=== PATIENT | male | born 1965 | race Caucasian/White ===

== ENCOUNTER 2019-07-17 06:54 | Inpatient (IN) ==
[2019-07-09 13:23] LABS: ALT/SGPT 22 U/l (0-40); AST/SGOT 20 U/l (0-37); Albumin 3.9 gm/dL (3.2-5.2); Albumin/Globulin Ratio 1.3 (1.0-2.3); Alkaline Phosphatase 58 U/L (39-117); Bilirubin,Total 0.6 mg/dL (0.0-1.0); Blood Urea Nitrogen 14 mg/dl (6-20); Calcium 9.6 mg/dl (8.6-10.4); Carbon Dioxide 28 mmol/L (22-30); Chloride 100 mmol/L (96-108); Globulin 3.1 gm/dL (2.2-3.7); Glomerular Filtration Rate 108; Glucose 118 mg/dL (70-105)
[2019-07-09 13:49] LABS: Basophils # (Auto) 0.05 K/mcL (0.00-0.30); Basophils % (Auto) 0.8 % (0.0-2.0); Eosinophils # (Auto) 0.14 K/mcL (0.00-0.70); Eosinophils % (Auto) 2.2 % (0.0-7.0); Granulocytes % (Auto) 70.6 % (38.0-78.0); Hematocrit 42.1 % (40.1-51.0); Hemoglobin 13.8 g/dL (13.7-17.5); Lymphocytes # (Auto) 1.12 K/mcL (1.50-4.80); Lymphocytes % (Auto) 17.4 % (15.5-49.0); Mean Cell Volume 93.8 fL (80.0-100.0); Mean Corpuscular HGB Conc 32.8 g/dL (31.0-36.0); Mean Platelet Volume 10.2 fL (7.4-10.4); Monocytes # (Auto) 0.58 K/mcL (0.10-0.90); Platelet Count 209 K/mcL (140-440); RBC 4.49 M/mcL (4.63-6.08); Red Cell Distribution Width 12.9 % (11.5-14.5); WBC 6.4 K/mcL (4.50-11.00)
[2019-07-09 14:06] LABS: Appearance,Urine CLEAR; Bilirubin,Urine NEG (NEG); Color,Urine YELLOW; Culture Indicated,Urine NO; Glucose,Urine (UA) NEGATIVE (NEG); Ketones,Urine NEG (NEG); Leukocyte Esterase,Urine NEG /uL (NEG); Nitrate,Urine NEG (NEG); Protein,Urine NEG (NEG); Specific Gravity,Urine 1.018 (1.000-1.035); Urine Blood NEG mg/dL (<0.03); Urobilinogen,Urine NEG (NEG)
[2019-07-09 14:38] LABS: Estimated Average Glucose(eAG) 120 mg/dL; Hemoglobin A1C 5.8 % HGB (4.0-6.0)
[~2019-07-17 06:54] MED LIST: 0.9 % SODIUM CHLORIDE 9 ML, KETOROLAC 30 MG, ROPIVACAINE HCL/PF 49.5 ML, EPINEPHrine 0.... IJ SCH; CELECOXIB 200 MG CAPSULE PO SCH; PREGABALIN 75 MG CAPSULE PO SCH; ceFAZolin 3 GM in DEXTROSE 5% IN WATER 50 ML IV SCH; oxyCODONE 10 MG TAB.ER.12H PO SCH
[2019-07-17] MEDS ORDERED: GLYCOPYRROLATE 0.2 MG/ML VIAL IV ONE (09:40)
[2019-07-17] MEDS ORDERED: ePHEDrine 50 MG/ML AMPUL IV ONE (09:40)
[2019-07-17] MEDS ORDERED: ONDANSETRON 4 MG/2 ML VIAL IV ONE (09:40)
[2019-07-17] MEDS ORDERED: ROPIVACAINE HCL/PF 20 ML VIAL IJ ONE (09:40)
[2019-07-17] MEDS ORDERED: PROPOFOL 200 MG/20 ML VIAL IV ONE (09:40)
[2019-07-17] MEDS ORDERED: DEXAMETHASONE 10 MG/ML VIAL IV ONE (09:40)
[2019-07-17] MEDS ORDERED: TRANEXAMIC ACID 1,000 MG/10 ML VIAL IV ONE (09:40)
[2019-07-17] MEDS ORDERED: KETAMINE 100 MG/ML ML IV ONE (09:40)
[2019-07-17] MEDS ORDERED: LIDOCAINE HCL/PF 100 MG/5 ML SYRINGE IV ONE (09:40)
[2019-07-17] MEDS ORDERED: TRIAMCINOLONE ACETONIDE 40 MG/ML VIAL IM ONE (10:03)
[2019-07-17] MEDS ORDERED: BUPIVACAINE 0.5% 50 ML VIAL IJ ONE (10:04)
[2019-07-17] MEDS ORDERED: TRIAMCINOLONE ACETONIDE 40 MG/ML VIAL INTRAARTIC ONE (10:15)
[2019-07-17] MEDS ORDERED: IPRATROPIUM/ALBUTEROL 3 ML AMPUL.NEB NEB PRN (11:15)
[2019-07-17] MEDS ORDERED: ONDANSETRON 4 MG/2 ML VIAL IV PRN ×2 (11:15)
[2019-07-17] MEDS ORDERED: diphenhydrAMINE 50 MG/ML VIAL IV PRN (11:15)
[2019-07-17] MEDS ORDERED: NALOXONE HCL 0.4 MG/ML VIAL IV PRN (11:15)
[2019-07-17] MEDS ORDERED: PROMETHAZINE 25 MG/ML VIAL IV PRN (11:15)
[2019-07-17] MEDS ORDERED: FLEETS ADULT ENEMA PR PRN (11:15)
[2019-07-17] MEDS ORDERED: ACETAMINOPHEN 1,000 MG/100 ML BOTTLE IV ONE (11:15)
[2019-07-17] MEDS ORDERED: BISACODYL 10 MG SUPP.RECT PR PRN (11:15)
[2019-07-17] MEDS ORDERED: MAGNESIUM HYDROXIDE 30 ML ORAL.SUSP PO PRN (11:15)
[2019-07-17] MEDS ORDERED: POLYETHYLENE GLYCOL 3350 17 GM PACKET PO PRN (11:15)
[2019-07-17] MEDS ORDERED: LACTATED RINGERS 1,000 ML IV SCH (11:15)
[2019-07-17] MEDS ORDERED: fentaNYL 100 MCG/2 ML VIAL IV PRN (11:15)
[2019-07-17] MEDS ORDERED: BENZOCAINE/MENTHOL 1 LOZENGE PO PRN (11:15)
[2019-07-17] MEDS ORDERED: MEPERIDINE 25 MG/ML SYRINGE IV PRN (11:15)
[2019-07-17] MEDS ORDERED: TRANEXAMIC ACID 1,000 MG/10 ML VIAL IV SCH (11:15)
[2019-07-17] MEDS ORDERED: LACTATED RINGERS 250 ML IV PRN (11:15)
--- NOTE | 2019-07-17 11:15 | Brief Operative Note ---
Date of procedure: 07/17/19 Pre-op diagnosis: Bilateral knee OA Post-op diagnosis: same Procedure: 1)Right robotic assisted total knee arthroplasty 2)Left knee intra-articular corticosteroid injection Grafts/Implants: Yes (Carmen Triathlon 5 CR femur, 5 tibia, 10mm insert, 36 patella) Anesthesia: spinal, GLMA Findings: severe arthritis Complications: none Surgeon: Dimas No Senior Premium Auditor: Obinna Engel Estimated blood loss (cc): 30 Specimens Removed/Pathology: none sent Condition: stable Disposition: PACU
--- NOTE | 2019-07-17 12:21 | Operative Note ---
DATE OF OPERATION: 07/17/2019 PREOPERATIVE DIAGNOSIS: Bilateral knee osteoarthritis. POSTOPERATIVE DIAGNOSIS: Bilateral knee osteoarthritis. PROCEDURE PERFORMED: 1. Right robotic-assisted total knee arthroplasty using a Carmen Triathlon size 5 cruciate retaining femoral component, size 5 tibial baseplate, 10 mm X3 tibial insert with a 36 mm patellar button. 2. Left knee intraarticular corticosteroid injection. SURGEON: Dimas No MD PUBLIC RELATIONS ACCOUNT EXECUTIVE: Curtis Engel PA-C. This provider's expertise and technical skill were required throughout the case. The PA assisted with preoperative coordination, intraoperative retraction, wound closure, dressing and splint application, as well as postoperative documentation and care coordination. ANESTHESIA: Spinal plus general. DRAINS: None. SPECIMENS: Bone cuts, which were discarded. BLOOD LOSS: 30 mL COMPLICATIONS: None. POSTOPERATIVE CONDITION: Stable. INDICATIONS FOR SURGERY: A 53-year-old male who has had longstanding progressive worsening bilateral knee pain. Radiographs showed [id number] osteoarthritis. FINDINGS AT SURGERY: As above. Post-implantation showed good limb alignment, patellar tracking, and joint stability. PROCEDURE IN DETAIL: The patient had been seen preoperatively. Informed consent had been obtained after discussion of risks and benefits of surgery. Risks including, but not limited to, bleeding, possibly requiring transfusion; infection, possibly requiring implant removal and prolonged IV antibiotics; injury to nerves, blood vessels, and other surrounding structures; anesthetic risks; incomplete or no resolution of symptoms; swelling; stiffness; pain; instability; DVT and pulmonary embolus risks; and the possibility of needing further revision joint surgery. Patient understood and wished to proceed. Correct operative site was marked in preoperative holding, and patient was taken to the operating room and general anesthesia was induced. The right lower extremity was then prepped and draped in normal sterile fashion, and a timeout was performed verifying patient name, operative site, and plan. Ioban was placed over all skin surfaces and an Esmarch was used to exsanguinate the extremity, and tourniquet was inflated to 300 mmHg. A midline incision was made with a scalpel through skin and subcutaneous tissue, then IrriSept was irrigated and a medial parapatellar arthrotomy was made, and then a subperiosteal exposure was done of the anterior medial tibia. Anterior horns of the menisci were removed, as well as retropatellar fat pad. ACL was transected. We then did a resection of the patella freehand, premeasuring thickness and then placing a cut protector after. We then placed our femoral and tibial checkpoints, and then a scalpel was used to make two stab incisions over the femur and two over the tibia and bicortical pins placed. The arrays were connected. The green probe was used to identify medial and lateral malleoli and double-checks were made with the green probe of the femoral and tibial check points. Blue probe was then used to do our mapping. A rongeur was used to remove osteophytes. We then used the spoons to check our flexion-extension gaps and made adjustments to get as close to 17 mm gaps on all four numbers as possible. Once this was completed, we then used the robotic arm to make our bone cuts. The tibia was prepared with the boss reamer and keel punch and externally rotated as bone coverage would allow. A keeled tibial trial was placed, and the femur was elevated. Curved osteotome and curet were used to remove posterior osteophytes. Femoral trial was then impacted and pinned into place. This was placed flush along the lateral cortex of the femur and then peg holes were drilled. A 9 insert trial was placed and then the knee was taken into extension. We then prepared the patella medializing maximally and sized this to a 36 mm patella. We then checked the patellar tracking and it was stable. We then removed trial implants. Definitive implants were opened while the joint was irrigated with IrriSept. After waiting a minute, we pulse lavaged with saline. Antibiotic cement was mixed and then the cancellous bone surfaces were dried with the CO2 gun. We then cemented the tibia, followed by the femur. Excess cement was removed, and the trial insert was placed, and the knee was taken into extension. The patella was then cemented. After excess cement was removed, we filled the joint with IrriSept. The tibial and femoral check points were removed. The extension was checked and then we removed our arrays and our pins. We injected pain cocktail in the pericapsular and subcutaneous tissues. Once cement had fully hardened, we flexed the knee up. We removed the insert trial, injected pain cocktail in the posteromedial capsule. We then opened a 10 mm X3 insert, and this was carefully impacted and verified to be fully seated. The knee was then placed in extension and filled with IrriSept. After a minute it was copiously pulse lavaged with saline. We then flexed the knee to 45 degrees of flexion. A #2 FiberWire lallar-ip-wpkol was used around the superior quadrant of the patella, #1 Vicryl vyqgex-wb-gqufwu around the inferior quadrant. Running #1 Vicryl was used for patellar tendon and quad tendon. Final IrriSept irrigation was done, after a minute final pulse lavage, and then 2-0 Monocryl was used for subcutaneous and juan diego for skin. Xeroform and sterile dressing were applied. Tourniquet was released. After dressings were placed, the left lower extremity was then prepped over the inferolateral portal and a steroid injection consisting of 4 mL of Marcaine and 2 mL of Kenalog 40 mg per mL was injected into the left knee joint and a Band-Aid was placed. The patient was awakened, extubated, and transferred to recovery in stable condition. BJB:papo Job ID: [id number] Doc ID: [id number] Dimas No MD
--- NOTE | 2019-07-17 12:25 | XRay Report ---
CLINICAL INFORMATION: Postsurgical follow-up TECHNIQUE: AP, crosstable lateral, patellar view COMPARISON: None. FINDINGS: Status post right total knee arthroplasty. Femoral and tibial components are in anatomic positions. There is postsurgical soft tissue and intra-articular gas. There are skin juan diego anteriorly. IMPRESSION: Status post right total knee arthroplasty Interpreted and Authenticated by: Mejia Vega 07/17/19
[2019-07-17] MEDS: 0.9 % SODIUM CHLORIDE 1,000 ML IV SCH ×2 (12:50→23:50)
[2019-07-17] MEDS: KETOROLAC 30 MG/ML VIAL IV SCH ×2 (12:51→18:07)
[2019-07-17] MEDS: 0.9 % SODIUM CHLORIDE 10 ML SYRINGE IV SCH ×2 (13:29→22:01)
[2019-07-17] MEDS: HYDROcodone/APAP 10/325MG TABLET PO PRN ×3 (14:28→20:27)
[2019-07-17] MEDS: ceFAZolin 1 GM VIAL IV SCH (16:32)
[2019-07-17] MEDS: ASPIRIN 81 MG TAB.CHEW PO SCH (20:26)
[2019-07-17] MEDS: DOCUSATE SODIUM 100 MG CAPSULE PO SCH (20:26)
[2019-07-17] MEDS ORDERED: amLODIPine 10 MG TABLET PO SCH (21:00)
[2019-07-17] MEDS ORDERED: PROPRANOLOL 60 MG CAP.XL.24H PO SCH (21:00)
[2019-07-17] MEDS ORDERED: SENNOSIDES 1 TABLET PO SCH (21:00)
[2019-07-18] MEDS: KETOROLAC 30 MG/ML VIAL IV SCH ×3 (00:20→12:26)
[2019-07-18] MEDS: ceFAZolin 1 GM VIAL IV SCH (00:20)
[2019-07-18] MEDS: HYDROcodone/APAP 10/325MG TABLET PO PRN ×3 (00:21→08:28)
[2019-07-18] MEDS: 0.9 % SODIUM CHLORIDE 1,000 ML IV SCH ×2 (04:24→12:36)
[2019-07-18] MEDS: 0.9 % SODIUM CHLORIDE 10 ML SYRINGE IV SCH (06:51)
[2019-07-18] MEDS ORDERED: OMEPRAZOLE 20 MG CAPSULE PO SCH (07:30)
[2019-07-18] MEDS ORDERED: traMADol 50 MG TABLET PO PRN (07:37)
--- NOTE | 2019-07-18 07:47 | Discharge Summary ---
Providers - Providers Patient information: Note initiated : 07/18/19 at 7:44 am Service Date, if different from initiated Date: [] Patient: Hola Cleary 53 y/o M admitted on 07/17/19 for Right Total Knee Arthroplasty Scottie . Chief Complaint: [] Discharge date: 07/18/19 Hospitalization Hospital Course: Pt was admitted for a R TKA. Pt underwent procedure on the day of admission. Pt was transferred to the floor for IV pain meds, IV abx, and PT. Will f/u in 2 weeks. Will take ASA for DVT prophylaxis. Discharge diagnosis: R knee OA Exam - Exam Clean and dry: Yes Weight bearing status: as tolerated Ortho Discharge - TKA - Patient Instructions Diet: Regular Diet Activity: activity as tolerated, weight bearing as tolerated Total Knee Protocol: For Total Knee: Start ROM ROCIO with stationary bike or rocking chair. Work on gaining full extension of knee. Posterior dislocation precautions provided. Hip abductor strengthening and gait training instructions provided. Apply Cryocuff as instructed. Dressing Care: May shower in 2 days - Follow Up Plan Follow Up Appointments: Obinna Engel PA-C [Physician Retail Performance Specialist] - 08/01/19 8:40 am Disposition: Home, Self-Care Prognosis: Good Rehab Potential: Good Overall status at discharge: patient is back to baseline - Orders For Discharge Prescriptions: Aspirin 81 mg PO BID #30 tab.chew Transmission Status: Pending to [facility] LORazepam [Ativan] 1 mg PO BIDP PRN #7 tab PRN Reason: Anxiety Prescription Printed Pending Studies Resuscitation Status Full Code Diet Consistent Carbohydrate Diet Start SunJul 17 1116 Hydrocodone Bitart/Acetaminophen ([place] 10/325mg) 0 tab PO Q4HP PRN; Protocol PRN Reason: PAIN LEVEL 3-6 Last Admin: 07/18/19 04:23 Dose: 2 tab Documented by: Admin: 07/18/19 00:21 Dose: 1 tab Documented by: Admin: 07/17/19 20:27 Dose: 2 tab Documented by: Admin: 07/17/19 16:31 Dose: 1 tab Documented by: [email or web address] Admin: 07/17/19 14:28 Dose: 1 tab Documented by: GODFREY Amlodipine Besylate (Norvasc) 10 mg PO HS BO Last Admin: 07/17/19 20:26 Dose: 10 mg Documented by: GABRIELA Aspirin (Aspirin) 81 mg PO BID [facility] Last Admin: 07/17/19 20:26 Dose: 81 mg Documented by: GABRIELA Docusate Sodium (Colace) 100 mg PO BID [facility] Last Admin: 07/17/19 20:26 Dose: 100 mg Documented by: GABRIELA Sodium Chloride (Sodium Chloride 0.9%) 1,000 mls @ 125 mls/hr IV .Q8H [facility] Last Admin: 07/18/19 04:24 Dose: Not Given Documented by: Infusion: 07/18/19 04:24 Dose: 125 mls/hr Documented by: Infusion: 07/18/19 04:24 Dose: 125 mls/hr Documented by: Admin: 07/17/19 23:50 Dose: 125 mls/hr Documented by: Infusion: 07/17/19 20:50 Dose: 125 mls/hr Documented by: Admin: 07/17/19 12:50 Dose: 125 mls/hr Documented by: JULIETA Ketorolac Tromethamine (Toradol) 30 mg IV Q6 [facility] Stop: 07/19/19 06:01 Last Admin: 07/18/19 06:51 Dose: 30 mg Documented by: Admin: 07/18/19 00:20 Dose: 30 mg Documented by: Admin: 07/17/19 18:07 Dose: 30 mg Documented by: Admin: 07/17/19 12:51 Dose: Not Given Documented by: JULIETA Omeprazole (Prilosec) 40 mg PO ACB [facility] Last Admin: 07/18/19 06:51 Dose: 40 mg Documented by: JULIETA Propranolol HCl (Inderal La) 120 mg PO [facility] Last Admin: 07/17/19 20:26 Dose: 120 mg Documented by: GABRIELA Senna (Senokot) 2 tab PO [facility] Last Admin: 07/17/19 20:26 Dose: 2 tab Documented by: GABRIELA Sodium Chloride (Saline Flush) 10 ml IV Q8 [facility] Last Admin: 07/18/19 06:51 Dose: 10 ml Documented by: Admin: 07/17/19 22:01 Dose: Not Given Documented by: Admin: 07/17/19 13:29 Dose: Not Given Documented by: [email or web address] Shift Summary 07/18/19 05:09 Shift Summary by Dahiana Dumont The patient is alert and oriented times four, he is tolerating a regular diet and PO intake well. There is an CATERINA wrap with a very small scant amount of dried drainage that did not increase in size throughout the shift with ambulation. He was up with a FWW and 1 SBA to the restroom to void quantity sufficient with a very steady gait/balance. He has AV boots in place, CMS intact with baseline of mild neuropathy/decreased sensation to his feet. He has scheduled Toradol and was given 2 tabs of Hydrocodone 10/325 mg twice and 1 tab once, IV is SL to his left forearm. He is able to use his I/S up to 3750 over 4-5 reps every hour while awake but did desaturate at rest in bed to 87-89% and with ambulation he was 91% on room air and completely asymptomatic and no dyspnea or tachypnea occurred. 2 LPM nasal cannula in place to maintain sats while at rest and believes he has undiagnosed sleep apnea and stated he will followup with his PCP after discharge. Spouse visited last evening and his plan is to discharge home today, will update shift summary report at bedside. Initialized on 07/18/19 05:09 - END OF NOTE
[2019-07-18] MEDS: DOCUSATE SODIUM 100 MG CAPSULE PO SCH (08:27)
[2019-07-18] MEDS: ASPIRIN 81 MG TAB.CHEW PO SCH (08:27)
[2019-07-18] MEDS ORDERED: HYDROCHLOROTHIAZIDE 12.5 MG CAPSULE PO SCH (09:00)
[2019-07-18] MEDS ORDERED: LOSARTAN 50 MG TABLET PO SCH (09:00)
[2019-07-18] MEDS ORDERED: FLUVOXAMINE MALEATE 100 MG PO SCH (09:00)
== END 2019-07-18 12:45 | disposition home or self-care (01) | DRG 470 ==
LOC: MEDSUR 06:54
PROVIDERS: ADMIT Orthopaedic Surgery; ATTEND Orthopaedic Surgery

== ENCOUNTER 2020-01-09 09:00 | Inpatient (IN) ==
--- NOTE | 2020-01-09 09:21 | Emergency Department Note ---
HPI General Chief complaint: Shortness of Breath/Dyspnea Stated complaint: Sob, bilateral swelling in legs Time Seen by Provider: 01/09/20 09:14 Source: patient Mode of arrival: wheelchair Limitations: no limitations History of Present Illness HPI Narrative: 54-year old patient presenting with chief complaint of dyspnea. Patient's dyspnea arose over the course of several days started last Sunday with a long ATV ride and heavy beer consumption along with pain medication. Patient with associated symptoms of bilateral lower extremity edema and swelling, dyspnea with any kind of exertion. Past medical history is significant for hypertension/obesity, deconditioning. This patient's dyspnea was exacerbated by exertion within 50-100 feet of walking or several minutes of exercise. Also was not associated with a nocturnal component. Symptoms are continuous. Additional associated symptoms such as cough, sputum production, nasal congestion, chest pain, peripheral edema, joint swelling, muscle weakness were also inquired- patient with fluid drained off of his knee within the past day or so as well as complaint of peripheral edema. Patient primarily with dyspnea sensation of working very hard to breathe/sensation of suffocation. Related Data Home Medications Medication Instructions Recorded Confirmed amlodipine 10 mg PO HS 07/09/19 01/09/20 fluvoxamine 100 mg PO DAILY 07/09/19 01/09/20 hydrochlorothiazide 12.5 mg PO DAILY 07/09/19 01/09/20 losartan 100 mg PO DAILY 07/09/19 01/09/20 omeprazole 40 mg PO ACB 07/09/19 01/09/20 propranolol 120 mg PO HS 07/09/19 01/09/20 Previous Rx's Medication Instructions Recorded aspirin 81 mg PO BID #30 tab.chew 07/18/19 Allergies Allergy/AdvReac Type Severity Reaction Status Date / Time Penicillins Allergy Unknown Unknown Verified 01/09/20 09:00 Review of Systems ROS ROS Narrative: Narrative: All systems ED: reviewed and negative except as stated. Constitutional: Denies fever and chills Eyes: Denies vision change ENT ED: Denies ear pain and throat pain Cardiovascular: Denies chest pain and palpitations Respiratory: Denies shortness of breath and cough Gastrointestinal: Denies abdominal pain, nausea and vomiting Genitourinary: Denies dysuria and frequency Musculoskeletal: Denies back pain and joint swelling Integumentary: Denies rash and lesions Neurological: Denies headache and weakness Psychiatric: Denies anxiety and depression Endocrine: Denies fatigue and heat or cold intolerance Hematological/Lymphatic: Denies easy bleeding and easy bruising PFS Narrative Patient History Narrative: Narrative: Medical/Surgical/Family History All Active Problems (Updated 01/14/20 @ 10:11 by Hong Murray MD) Acute dyspnea (Acute) Infected prosthetic knee joint (Acute) Depression (Chronic) Hemorrhoids (Chronic) History of esophageal dilatation (Chronic) Osteoarthritis (Chronic) Hypertension, essential (Chronic) Medical History Hemorrhoids (Chronic) Hypertension, essential (Chronic) Osteoarthritis (Chronic) Retired, due to arthritis in spine Surgical History History of esophageal dilatation (Chronic) 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 Family History Unknown Cardiac disease Essential hypertension Mother Cervical disc disease Family/Other Stroke, Onset Age: 50 Social History Smoking Status: Former smoker Exam Narrative Narrative: Narrative: Vital signs and evaluated for evidence of hypoxia or hemodynamic compromise specifically tachycardia/hypotension patient is noted to be tachycardic General: Alert, interactive, appropriate Head: Atraumatic, normocephalic Eyes: Extraocular movements intact, sclera anicteric, no conjunctival injection Ears: Pinnae normal, no discharge Mouth: Oral mucosa moist, no acute swelling or evidence of infection Nares: No nasal discharge, patent bilaterally Neck: Trachea midline, full range of motion Chest: Symmetrical chest wall rise, increased respiratory rate and respiratory effort Cardiovascular: Patient with excellent perfusion to the extremities; with tachycardia Extremities: Full range of motion joints, no obvious deformities; patient with scar from knee replacement on the right knee not significantly swollen at this point in time Neuro: Alert, oriented x3, cranial nerves II through XII grossly intact, patient without lateralizing findings such as weakness, or abnormal reflexes Psychiatric: Normal affect, normal mood General Limitations: no limitations General appearance: alert and in no apparent distress Head Head: atraumatic and normocephalic Eye Eye: Present normal appearance, PERRL and EOMI; Absent scleral icterus and conjunctival injection ENT ENT: Present normal oropharynx and mucous membranes moist Neck Neck: Present trachea midline; Absent lymphadenopathy and thyromegaly Chest Chest: Present symmetric chest wall rise Respiratory Respiratory: Present normal lung sounds bilaterally; Absent respiratory distress, wheezes, stridor, accessory muscle use and prolonged expiratory phase Cardiovascular Cardiovascular: Present regular rate and normal rhythm; Absent systolic murmur and diastolic murmur Adbominal Abdominal: Present soft; Absent distention, tenderness, guarding, rebound, rigidity, organomegaly and mass Extremities Extremities: Absent pedal edema, pretibial edema and calf tenderness Back Back: Absent CVA tenderness (R), CVA tenderness (L) and spinous process tenderness Neurological Neurological: Present alert and oriented X3 Psychiatric Psychiatric: Present normal affect and normal mood Skin Skin: Present warm and dry Course Vital Signs Vital signs: Vital Signs Temperature 98.5 F 01/09/20 09:00 Pulse Rate 104 H 01/09/20 09:00 Respiratory Rate 23 H 01/09/20 09:00 Blood Pressure 134/75 01/09/20 09:00 Pulse Oximetry (%) 92 01/09/20 09:00 Temperature 98.1 F 01/12/20 12:35 Pulse Rate 93 H 01/12/20 12:35 Respiratory Rate 22 01/12/20 12:35 Blood Pressure 106/66 01/12/20 12:35 Pulse Oximetry (%) 98 01/12/20 12:01 [facility] Narrative Medical decision making narrative: Narrative: Acute dyspnea differential diagnosis considered in this case included ME, heart failure, cardiac tamponade, bronchospasm, pulmonary embolism, pneumothorax, pneumonia or infection, and upper airway obstruction. After review of chart and patient history/physical exam/labs as well as imaging the differential diagnosis addressed was acute hypoxic respiratory failure, COPD exacerbation, pneumonia, sepsis, pulmonary edema, pneumothorax, metabolic acidosis, acute respiratory distress syndrome, panic attack, airflow obstruction, restrictive lung disease, aspiration, congestive heart failure, hypercapnia, influenza, bronchitis, upper respiratory infection, pulmonary embolism, cardiac tamponade, valvular obstruction, ME/ACS, and arrhythmia in my medical opinion this patient has dyspnea that reasonably does/not require admission to the hospital. Wells criteria applied: Clinical symptoms of DVT would have been awarded 3 points, other diagnosis less likely than PE would have been awarded 3 points, immobilization 3 or more days or surgery in the previous 4 weeks would have been awarded 1.5 points, history of previous DVT/PE would have been awarded 1.5 points, with hemoptysis, and malignancy each receiving one point if positive. PERC rule is applied when well score is less than 2 and the following factors we re considered: Age less than 50, heart rate less than 100, oxyhemoglobin saturation greater than 95%, no hemoptysis, no estrogen use, no prior DVT/PE, no unilateral leg swelling, no surgery trauma requiring hospitalization within the past 4 weeks. D-dimer is obtained. Along with troponin EKG routine laboratory. Patient noted to have a positive culture for his knee aspiration earlier and will need to be surgically treated. Pt does have elevated d-dimer as well as BNP white blood cell count minimally elevated at 14.1. At this point in his care I recommend CTA chest however patient is going to require surgical treatment for prosthetic knee joint infection. Patient taken directly from [facility] department to day surgery for surgical management. Lab Data Result diagrams: 01/12/20 05:30 01/12/20 05:30 Labs: Lab Results 01/09/20 01/09/20 01/09/20 Range/Units 09:34 09:34 09:34 WBC 14.1 H (4.50-11.00) K/mcL RBC 3.96 L (4.63-6.08) M/mcL Hgb 12.2 L (13.7-17.5) g/dL Hct 35.8 L (40.1-51.0) % MCV 90.4 (80.0-100.0) fL MCH 30.8 (26.0-34.0) pg MCHC 34.1 (31.0-36.0) g/dL RDW 13.6 (11.5-14.5) % Plt Count 195 (140-440) K/mcL MPV 10.3 (7.4-10.4) fL Gran % 82.5 H (38.0-78.0) % Lymph % (Auto) 3.1 L (15.5-49.0) % [place] % (Auto) 14.0 H (1.0-12.0) % Eos % (Auto) 0.1 (0.0-7.0) % Baso % (Auto) 0.3 (0.0-2.0) % Gran # 11.63 H (1.80-8.00) K/mcL Lymph # (Auto) 0.44 L (1.50-4.80) K/mcL [place] # (Auto) 1.98 H (0.10-0.90) K/mcL Eos # (Auto) 0.02 (0.00-0.70) K/mcL Baso # (Auto) 0.04 (0.00-0.30) K/mcL Differential Comment PT (11.9-14.5) sec INR (0.9-1.1) D-Dimer 3.81 H (0.00-0.40) ug/ml Sodium 133 (133-145) mmol/L Potassium 3.9 (3.3-5.1) mmol/L Chloride 94 L (96-108) mmol/L Carbon Dioxide 22 (22-30) mmol/L Anion Gap 17.0 H (8-16) BUN 35 H (6-20) mg/dl Creatinine 1.1 (0.7-1.2) mg/dl GFR Calculation 76 Glucose 99 (70-105) mg/dL Calcium 9.0 (8.6-10.4) mg/dl Total Bilirubin 1.6 H (0.0-1.0) mg/dL AST 36 (0-37) U/l ALT 33 (0-40) U/l Alkaline Phosphatase 221 H (39-117) U/L Troponin T (0-0.03) ng/ml NT-Pro-B Natriuret Pep 1312.0 H (0-125) pg/ml Total Protein 6.9 (5.9-8.4) gm/dL Albumin 3.2 (3.2-5.2) gm/dL Globulin 3.7 (2.2-3.7) gm/dL Albumin/Globulin Ratio 0.9 L (1.0-2.3) Urine Color Urine Appearance Urine pH (5.0-9.0) Ur Specific [place] (1.000-1.035) Urine Protein (NEG) mg/dL Urine Glucose (UA) (NEG) mg/dL Urine Ketones (NEG) mg/dL Urine Occult Blood (<0.03) mg/dL Urine Nitrate (NEG) Urine Bilirubin (NEG) mg/dL Urine Urobilinogen (NEG) mg/dL Ur Leukocyte Esterase (NEG) /uL Urine RBC (0-1) /hpf Urine WBC (0-4) /hpf Ur Squamous Epith Cells (0-4) /hpf Urine Bacteria (0) /hpf Urine Mucus (0) /hpf Ur Culture Indicated? COVID-19 PCR (NEGATIVE) 01/09/20 01/09/20 01/09/20 Range/Units 09:34 09:34 10:29 WBC (4.50-11.00) K/mcL RBC (4.63-6.08) M/mcL Hgb (13.7-17.5) g/dL Hct (40.1-51.0) % MCV (80.0-100.0) fL MCH (26.0-34.0) pg MCHC (31.0-36.0) g/dL RDW (11.5-14.5) % Plt Count (140-440) K/mcL MPV (7.4-10.4) fL Gran % (38.0-78.0) % Lymph % (Auto) (15.5-49.0) % [place] % (Auto) (1.0-12.0) % Eos % (Auto) (0.0-7.0) % Baso % (Auto) (0.0-2.0) % Gran # (1.80-8.00) K/mcL Lymph # (Auto) (1.50-4.80) K/mcL [place] # (Auto) (0.10-0.90) K/mcL Eos # (Auto) (0.00-0.70) K/mcL Baso # (Auto) (0.00-0.30) K/mcL Differential Comment PT 16.4 H (11.9-14.5) sec INR 1.3 H (0.9-1.1) D-Dimer (0.00-0.40) ug/ml Sodium (133-145) mmol/L Potassium (3.3-5.1) mmol/L Chloride (96-108) mmol/L Carbon Dioxide (22-30) mmol/L Anion Gap (8-16) BUN (6-20) mg/dl Creatinine (0.7-1.2) mg/dl GFR Calculation Glucose (70-105) mg/dL Calcium (8.6-10.4) mg/dl Total Bilirubin (0.0-1.0) mg/dL AST (0-37) U/l ALT (0-40) U/l Alkaline Phosphatase (39-117) U/L Troponin T < 0.01 (0-0.03) ng/ml NT-Pro-B Natriuret Pep (0-125) pg/ml Total Protein (5.9-8.4) gm/dL Albumin (3.2-5.2) gm/dL Globulin (2.2-3.7) gm/dL Albumin/Globulin Ratio (1.0-2.3) Urine Color Urine Appearance Urine pH (5.0-9.0) Ur Specific [place] (1.000-1.035) Urine Protein (NEG) mg/dL Urine Glucose (UA) (NEG) mg/dL Urine Ketones (NEG) mg/dL Urine Occult Blood (<0.03) mg/dL Urine Nitrate (NEG) Urine Bilirubin (NEG) mg/dL Urine Urobilinogen (NEG) mg/dL Ur Leukocyte Esterase (NEG) /uL Urine RBC (0-1) /hpf Urine WBC (0-4) /hpf Ur Squamous Epith Cells (0-4) /hpf Urine Bacteria (0) /hpf Urine Mucus (0) /hpf Ur Culture Indicated? COVID-19 PCR Covid-19 negative (NEGATIVE) 01/09/20 Range/Units 10:29 WBC (4.50-11.00) K/mcL RBC (4.63-6.08) M/mcL Hgb (13.7-17.5) g/dL Hct (40.1-51.0) % MCV (80.0-100.0) fL MCH (26.0-34.0) pg MCHC (31.0-36.0) g/dL RDW (11.5-14.5) % Plt Count (140-440) K/mcL MPV (7.4-10.4) fL Gran % (38.0-78.0) % Lymph % (Auto) (15.5-49.0) % [place] % (Auto) (1.0-12.0) % Eos % (Auto) (0.0-7.0) % Baso % (Auto) (0.0-2.0) % Gran # (1.80-8.00) K/mcL Lymph # (Auto) (1.50-4.80) K/mcL [place] # (Auto) (0.10-0.90) K/mcL Eos # (Auto) (0.00-0.70) K/mcL Baso # (Auto) (0.00-0.30) K/mcL Differential Comment PT (11.9-14.5) sec INR (0.9-1.1) D-Dimer (0.00-0.40) ug/ml Sodium (133-145) mmol/L Potassium (3.3-5.1) mmol/L Chloride (96-108) mmol/L Carbon Dioxide (22-30) mmol/L Anion Gap (8-16) BUN (6-20) mg/dl Creatinine (0.7-1.2) mg/dl GFR Calculation Glucose (70-105) mg/dL Calcium (8.6-10.4) mg/dl Total Bilirubin (0.0-1.0) mg/dL AST (0-37) U/l ALT (0-40) U/l Alkaline Phosphatase (39-117) U/L Troponin T (0-0.03) ng/ml NT-Pro-B Natriuret Pep (0-125) pg/ml Total Protein (5.9-8.4) gm/dL Albumin (3.2-5.2) gm/dL Globulin (2.2-3.7) gm/dL Albumin/Globulin Ratio (1.0-2.3) Urine Color Yellow Urine Appearance Clear Urine pH 6.0 (5.0-9.0) Ur Specific [place] 1.016 (1.000-1.035) Urine Protein 30 A (NEG) mg/dL Urine Glucose (UA) Negative (NEG) mg/dL Urine Ketones Neg (NEG) mg/dL Urine Occult Blood 0.03 A (<0.03) mg/dL Urine Nitrate Neg (NEG) Urine Bilirubin Neg (NEG) mg/dL Urine Urobilinogen 4.0 A (NEG) mg/dL Ur Leukocyte Esterase Neg (NEG) /uL Urine RBC < 1 (0-1) /hpf Urine WBC < 1 (0-4) /hpf Ur Squamous Epith Cells 0 (0-4) /hpf Urine Bacteria Few A (0) /hpf Urine Mucus Few (0) /hpf Ur Culture Indicated? No COVID-19 PCR (NEGATIVE) Discharge Plan Patient/Caregiver Discharge Instructions Pt seen by CAPACITOR ASSEMBLER/PA only: No Clinical Impression: Acute dyspnea, Infected prosthetic knee joint Patient Disposition: Xfer As Inpt ([facility]) Condition: Critical Discharge Date/Time: 01/09/20 10:32 Discharge Comment: admitted for procedure with Dr. Morillo
--- NOTE | 2020-01-09 09:53 | XRay Report ---
CLINICAL INFORMATION: Chest pain COMPARISON: None. TECHNIQUE: Portable FINDINGS: The heart size, mediastinum and pulmonary vessels are unremarkable. The lungs are clear. There are no effusions. The bones and soft tissues are within normal limits. IMPRESSION: Normal chest. Interpreted and Authenticated by: Mejia Lambert 01/09/20
[2020-01-09] MEDS ORDERED: HYDROmorphone 0.5 MG/0.5 ML SYRINGE IV PRN (09:57)
[2020-01-09 10:03] LABS: Basophils # (Auto) 0.04 K/mcL (0.00-0.30); Basophils % (Auto) 0.3 % (0.0-2.0); Eosinophils # (Auto) 0.02 K/mcL (0.00-0.70); Eosinophils % (Auto) 0.1 % (0.0-7.0); Granulocytes % (Auto) 82.5 % (38.0-78.0); Hematocrit 35.8 % (40.1-51.0); Hemoglobin 12.2 g/dL (13.7-17.5); Lymphocytes # (Auto) 0.44 K/mcL (1.50-4.80); Lymphocytes % (Auto) 3.1 % (15.5-49.0); Mean Cell Volume 90.4 fL (80.0-100.0); Mean Corpuscular HGB Conc 34.1 g/dL (31.0-36.0); Mean Platelet Volume 10.3 fL (7.4-10.4); Monocytes # (Auto) 1.98 K/mcL (0.10-0.90); Platelet Count 195 K/mcL (140-440); RBC 3.96 M/mcL (4.63-6.08); Red Cell Distribution Width 13.6 % (11.5-14.5); WBC 14.1 K/mcL (4.50-11.00)
[2020-01-09 10:21] LABS: INR 1.3 (0.9-1.1); Prothrombin Time 16.4 sec (11.9-14.5)
[2020-01-09 10:23] LABS: ALT/SGPT 33 U/l (0-40); AST/SGOT 36 U/l (0-37); Albumin 3.2 gm/dL (3.2-5.2); Albumin/Globulin Ratio 0.9 (1.0-2.3); Alkaline Phosphatase 221 U/L (39-117); Bilirubin,Total 1.6 mg/dL (0.0-1.0); Blood Urea Nitrogen 35 mg/dl (6-20); Carbon Dioxide 22 mmol/L (22-30); Globulin 3.7 gm/dL (2.2-3.7); Glomerular Filtration Rate 76; Glucose 99 mg/dL (70-105)
[2020-01-09 10:28] LABS: Chloride 94 mmol/L (96-108)
[2020-01-09] MEDS ORDERED: ceFAZolin 3 GM in DEXTROSE 5% IN WATER 50 ML IV SCH (11:00)
[2020-01-09 11:09] LABS: Appearance,Urine CLEAR; Bacteria,Urine FEW /hpf (0); Bilirubin,Urine NEG (NEG); Color,Urine YELLOW; Culture Indicated,Urine NO; Glucose,Urine (UA) NEGATIVE (NEG); Ketones,Urine NEG (NEG); Leukocyte Esterase,Urine NEG /uL (NEG); Mucus,Urine FEW /hpf (0); Nitrate,Urine NEG (NEG); Protein,Urine 30 mg/dL (NEG); Specific Gravity,Urine 1.016 (1.000-1.035); Urine Blood 0.03 mg/dL (<0.03); Urine RBC < 1 /hpf (0-1); Urine Squamous Epithelial Cell 0 /hpf (0-4); Urine WBC < 1 /hpf (0-4)
[2020-01-09] MEDS ORDERED: ONDANSETRON 4 MG/2 ML VIAL IV ONE (11:18)
[2020-01-09] MEDS ORDERED: PROPOFOL 200 MG/20 ML VIAL IV ONE (11:18)
[2020-01-09] MEDS ORDERED: ROCURONIUM 10 MG/ML ML IV ONE (11:18)
[2020-01-09] MEDS ORDERED: FUROSEMIDE 20 MG/2 ML VIAL IV ONE (11:18)
[2020-01-09] MEDS ORDERED: fentaNYL 100 MCG/2 ML VIAL IV ONE (11:18)
[2020-01-09] MEDS ORDERED: MIDAZOLAM 5 MG/5 ML VIAL IV ONE (11:18)
[2020-01-09] MEDS ORDERED: LIDOCAINE HCL/PF 100 MG/5 ML SYRINGE IV ONE (11:18)
[2020-01-09] MEDS ORDERED: DEXAMETHASONE 10 MG/ML VIAL IV ONE (11:18)
[2020-01-09] MEDS ORDERED: GLYCOPYRROLATE 0.2 MG/ML VIAL IV ONE (11:18)
[2020-01-09] MEDS ORDERED: KETAMINE 100 MG/ML ML IV ONE (11:18)
[2020-01-09] MEDS ORDERED: VANCOMYCIN 1 GM VIAL TOPICAL ONE ×2 (12:15→13:15)
[2020-01-09] MEDS ORDERED: VANCOMYCIN 1 GM VIAL TOPICAL SCH (13:00)
--- NOTE | 2020-01-09 13:13 | Internal Medicine Consult Note ---
HPI Data of Consult Primary Care Provider: Scott Ibanez Consult Narrative Patient Information: Note initiated : 01/09/20 at 1:05 pm Service Date, if different from initiated Date: [] Patient: Hola Cleary 54 y/o M admitted on for Sob, bilateral swelling in legs. Chief Complaint: Shortness of breath History of presenting complaint Mr. Fowler is a 54-year-old with history of hypertension/DJD who presented to the ER this morning with shortness of breath along with bilateral lower extremity swelling over the last 3 days. Patient work-up was suggestive of possible CHF/sepsis or PE as per Dr. Murray ER physician's initial evaluation. He was diagnosed with right prosthetic knee hardware infection following positive synovial fluid aspirate performed at Dr. No's clinic. He was taken to the OR directly from ER by orthopedics for surgical intervention/joint washout. Intraoperatively patient became hypoxic requiring 100% oxygen on mechanical ventilation. Hospital service was consulted by anesthesia Dr. Medina regarding patient deteriorating status/hypoxia and need for further evaluation. Patient's dramatic worsening respiratory status points to a couple of likely possibilities including an acute PE/CHF-flash pulmonary edema or a manifestation of severe sepsis. Patient is currently undergoing surgery and following discussion with anesthesia it was determined that the patient would require transfer to the ICU on mechanical ventilation and will receive an emergent CT angiogram chest to evaluate for PE and the need for anticoagulation/TPA if hemodynamically unst able. Also patient will be initiated on broad antibiotic coverage while blood cultures/ABG/lactic acid will be obtained. Patient be started on ICU sedation on midazolam/fentanyl. No family members available for further history Most of the history was obtained from review of medical records, ER physician Dr. Hong Murray and from anesthesia Dr. Medina. Patient was received in ICU on mechanical ventilation. chest imaging/CT/labs including lactic acid/ABG in ICU sedation was performed. Harmon's catheter draining clear urine. 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 Family History (Updated 12/28/16 @ 16:24 by Scott Ibanez MD) Unknown Cardiac disease Essential hypertension Mother Cervical disc disease Family/Other Stroke, Onset Age: 50 Social History marital status: other: Brother at age 43/estranged children/father at age 50 smoking status: Never smoker MEDS/ALLERGIES Home Medications and Allergies Home Medications Medication Instructions Recorded Confirmed Type amlodipine 10 mg PO HS 07/09/19 01/09/20 History fluvoxamine 100 mg PO DAILY 07/09/19 01/09/20 History hydrochlorothiazide 12.5 mg PO DAILY 07/09/19 01/09/20 History losartan 100 mg PO DAILY 07/09/19 01/09/20 History omeprazole 40 mg PO ACB 07/09/19 01/09/20 History propranolol 120 mg PO HS 07/09/19 01/09/20 History aspirin 81 mg PO BID #30 tab.chew 07/18/19 01/09/20 Rx Allergies Allergy/AdvReac Type Severity Reaction Status Date / Time Penicillins Allergy Unknown Unknown Verified 01/09/20 09:00 EXAM Constitutional Vitals: Temp Pulse Resp BP Pulse Ox 98.5 F 102 H 30 H 124/83 92 01/09/20 09:00 01/09/20 10:28 01/09/20 10:28 01/09/20 10:28 01/09/20 10:28 On mechanical ventilation Head normocephalic Oral cavity moist NG tube/ET tube Eyes symmetrical gaze Neck supple no lymphadenopathy S1-S2 occasionally irregular Diminished breath sounds left base Nondistended pendulous abdomen Lower extremity no cyanosis clubbing or joint swelling Skin no suspicious lesion Psych on mechanical ventilation Neuro could not be examined DATA Data Completed and Pending Labs on day of discharge: Labs from last 24 hours 01/09/20 01/09/20 01/09/20 10:29 10:29 09:34 WBC RBC Hgb Hct MCV MCH MCHC RDW Plt Count MPV Gran % Lymph % (Auto) [place] % (Auto) Eos % (Auto) Baso % (Auto) Gran # Lymph # (Auto) [place] # (Auto) Eos # (Auto) Baso # (Auto) Differential Comment PT 16.4 H INR 1.3 H D-Dimer Sodium Potassium Chloride Carbon Dioxide Anion Gap BUN Creatinine GFR Calculation Glucose Calcium Total Bilirubin AST ALT Alkaline Phosphatase Troponin T NT-Pro-B Natriuret Pep Total Protein Albumin Globulin Albumin/Globulin Ratio Urine Color Yellow Urine Appearance Clear Urine pH 6.0 Ur Specific [place] 1.016 Urine Protein 30 A Urine Glucose (UA) Negative Urine Ketones Neg Urine Occult Blood 0.03 A Urine Nitrate Neg Urine Bilirubin Neg Urine Urobilinogen 4.0 A Ur Leukocyte Esterase Neg Urine RBC < 1 Urine WBC < 1 Ur Squamous Epith Cells 0 Urine Bacteria Few A Urine Mucus Few Ur Culture Indicated? No COVID-19 PCR Covid-19 negative 01/09/20 01/09/20 01/09/20 09:34 09:34 09:34 WBC RBC Hgb Hct MCV MCH MCHC RDW Plt Count MPV Gran % Lymph % (Auto) [place] % (Auto) Eos % (Auto) Baso % (Auto) Gran # Lymph # (Auto) [place] # (Auto) Eos # (Auto) Baso # (Auto) Differential Comment PT INR D-Dimer 3.81 H Sodium 133 Potassium 3.9 Chloride 94 L Carbon Dioxide 22 Anion Gap 17.0 H BUN 35 H Creatinine 1.1 GFR Calculation 76 Glucose 99 Calcium 9.0 Total Bilirubin 1.6 H AST 36 ALT 33 Alkaline Phosphatase 221 H Troponin T < 0.01 NT-Pro-B Natriuret Pep 1312.0 H Total Protein 6.9 Albumin 3.2 Globulin 3.7 Albumin/Globulin Ratio 0.9 L Urine Color Urine Appearance Urine pH Ur Specific [place] Urine Protein Urine Glucose (UA) Urine Ketones Urine Occult Blood Urine Nitrate Urine Bilirubin Urine Urobilinogen Ur Leukocyte Esterase Urine RBC Urine WBC Ur Squamous Epith Cells Urine Bacteria Urine Mucus Ur Culture Indicated? COVID-19 PCR 01/09/20 09:34 WBC 14.1 H RBC 3.96 L Hgb 12.2 L Hct 35.8 L MCV 90.4 MCH 30.8 MCHC 34.1 RDW 13.6 Plt Count 195 MPV 10.3 Gran % 82.5 H Lymph % (Auto) 3.1 L [place] % (Auto) 14.0 H Eos % (Auto) 0.1 Baso % (Auto) 0.3 Gran # 11.63 H Lymph # (Auto) 0.44 L [place] # (Auto) 1.98 H Eos # (Auto) 0.02 Baso # (Auto) 0.04 Differential Comment PT INR D-Dimer Sodium Potassium Chloride Carbon Dioxide Anion Gap BUN Creatinine GFR Calculation Glucose Calcium Total Bilirubin AST ALT Alkaline Phosphatase Troponin T NT-Pro-B Natriuret Pep Total Protein Albumin Globulin Albumin/Globulin Ratio Urine Color Urine Appearance Urine pH Ur Specific [place] Urine Protein Urine Glucose (UA) Urine Ketones Urine Occult Blood Urine Nitrate Urine Bilirubin Urine Urobilinogen Ur Leukocyte Esterase Urine RBC Urine WBC Ur Squamous Epith Cells Urine Bacteria Urine Mucus Ur Culture Indicated? COVID-19 PCR A/P Narrative A/P Narrative: * Acute hypoxic respiratory failure-differential include massive PE/flash pulmonary edema or severe sepsis endorgan dysfunction. Stat CT angiogram. ABG/pancultures/antibiotic. Large AA gradient with VQ mismatch. Continue mechanical ventilation per protocol * Severe Sepsis with endorgan dysfunction/AMS-broad antibiotic coverage and management per guidelines, pressors if indicated * Septic knee status post operative intervention by orthopedics * Mechanical ventilation per protocol * History of hypertension hold antihypertensives * GERD on PPI * History of drug abuse * History of alcoholism * Full code * Prophylaxis will be initiated on heparin Plan * Stat CT angio chest * Pancultures/lactic acid/ABG * Broad antibiotic coverage * Mechanical ventilation per protocol * Critically ill, high risk mortality Critical care time spent in excess of 55 minutes on stabilization and management of mechanical ventilation/postoperative care. An additional 70 minutes spent on history and physical, review of records, discussions with multiple physician Time Spent With Patient Time: Total time spent is greater than 50% in coordination of care (as documented) at patient's floor/unit and/or counseling patient:
[2020-01-09] MEDS ORDERED: FLEETS ADULT ENEMA PR PRN (13:23)
[2020-01-09] MEDS ORDERED: POLYETHYLENE GLYCOL 3350 17 GM PACKET PO PRN (13:23)
[2020-01-09] MEDS ORDERED: HYDROmorphone 1 MG/ML SYRINGE IV PRN (13:23)
[2020-01-09] MEDS ORDERED: DEXTROSE 31 GM ORAL.SUSP PO PRN (13:23)
[2020-01-09] MEDS ORDERED: HYDROcodone/APAP 10/325MG TABLET PO PRN (13:23)
[2020-01-09] MEDS ORDERED: DEXTROSE 50% 50 ML VIAL IV PRN (13:23)
[2020-01-09] MEDS ORDERED: BENZOCAINE/MENTHOL 1 LOZENGE PO PRN (13:23)
[2020-01-09] MEDS ORDERED: MAGNESIUM HYDROXIDE 30 ML ORAL.SUSP PO PRN (13:23)
[2020-01-09] MEDS ORDERED: BISACODYL 10 MG SUPP.RECT PR PRN (13:23)
[2020-01-09] MEDS ORDERED: ONDANSETRON 4 MG/2 ML VIAL IV PRN (13:23)
[2020-01-09] MEDS ORDERED: TRANEXAMIC ACID 1,000 MG/10 ML VIAL IV ONE (13:23)
--- NOTE | 2020-01-09 13:23 | Brief Operative Note ---
Brief Operative Note Date of procedure: 01/09/20 Pre-op diagnosis: Right infected total knee arthroplasty Post-op diagnosis: same Procedure: Right I&D and removal of prosthesis with placement of antibiotic spacer of infected total knee Grafts/Implants: Yes ([place] Triathlon 5 CR femur, 12mm x 7 Depuy attune rotating platform poly) Anesthesia: spinal and GLMA Findings: deep infection Complications: none Surgeon: Dimas No Wood Flour Miller: Obinna Engle Estimated blood loss (cc): 200 Specimens Removed/Pathology: none sent Condition: stable Disposition: PACU
[2020-01-09] MEDS ORDERED: VANCOMYCIN PER PHARMACY IV SCH (13:24)
[2020-01-09] MEDS ORDERED: VANCOMYCIN PER PHARMACY IV ONE (13:29)
[2020-01-09] MEDS ORDERED: 0.9 % SODIUM CHLORIDE 1,000 ML IV SCH (13:30)
[2020-01-09] MEDS ORDERED: HEPARIN SOD,PORK IN 0.45% NACL 25,000 UNIT in PREMIX 1 BAG IV SCH (13:30)
[2020-01-09] MEDS ORDERED: HEPARIN/NS 500 ML IV SCH (13:45)
[2020-01-09] MEDS ORDERED: IOPAMIDOL 100 ML BOTTLE IV ONE (14:19)
[2020-01-09] MEDS: 0.9 % SODIUM CHLORIDE 10 ML SYRINGE IV SCH ×4 (14:30→21:29)
--- NOTE | 2020-01-09 14:50 | Cat Scan Report ---
CLINICAL INFORMATION: Sudden onset chest pain and dyspnea COMPARISON: None. TECHNIQUE: 80ml of Isovue-370 were injected intravenously. Using SmartPrep to maximize pulmonary artery opacification, .625mm helical slices were obtained from the lung apices through the lung bases. Following reconstruction, 2.5 mm sagittal, coronal, and axial reformations were processed. The exam was reviewed at mediastinal, lung, and bone windows. The exam was performed using radiation dose optimization techniques including, but not limited to, automated exposure control, adjustment of the mA and/or kV according to patient size and use of iterative reconstruction technique. FINDINGS: Pulmonary parenchymal windows show moderate consolidated infiltrates in both posterior lower lobes and lingula. Small region of consolidated infiltrate seen in both posterior upper lobes. There are no pleural effusions. Mediastinal windows show the pulmonary arteries are suboptimally opacified but no emboli appreciated. Thoracic aorta is normal in diameter. The heart is mildly enlarged with very heavy fibrofatty calcific plaque throughout the LAD and smaller amount of plaque in the right coronary and circumflex arteries. 3-4 mildly enlarged lymph nodes in the right paratracheal region ranging up to 17 mm the right paratracheal region. There almost certainly benign reactive lymph nodes. Endotracheal tip is in satisfactory position 3 cm above the mariusz. Esophagus is grossly normal. Thyroid is unremarkable. Bones and soft tissues the chest wall show no abnormality. Images through the abdomen are unremarkable. IMPRESSION: 1. No evidence of pulmonary embolus. 2. Moderate solid infiltrate in both posterior lower lobes and lingula with smaller infiltrates in both posterior upper lobes. Aspiration is suspected. 3. Mild cardiomegaly with extremely heavy fibrofatty and calcific plaque in the LAD smaller amounts in the circumflex and right artery arteries. Please correlate with enzymes and EKG changes to ensure the patient did not have a myocardial infarction. Suggest cardiology referral for stress testing when patient returns to clinical baseline. Interpreted and Authenticated by: Mejia Lambert 01/09/20
--- NOTE | 2020-01-09 15:06 | XRay Report ---
CLINICAL INFORMATION: Post-Op Total Knee COMPARISON: None. FINDINGS: The tibial component of the knee prosthesis has been removed. Multiple dense antibiotic-impregnated beads seen in the distal prefemoral soft tissues and tibiofemoral joint. The femoral component remains anatomically aligned. Moderate soft tissue swelling appreciated IMPRESSION: Removal of the tibial component knee prostheses. Multiple antibiotic impregnated beads in the distal pre femoral soft tissues and tibiofemoral joint Interpreted and Authenticated by: Mejia Lambert 01/09/20
[2020-01-09] MEDS: fentaNYL 2,500 MCG in 0.9 % SODIUM CHLORIDE 200 ML IV SCH (15:10)
--- NOTE | 2020-01-09 15:18 | XRay Report ---
CLINICAL INFORMATION: ng tube position COMPARISON: None. FINDINGS: NG tube tip overlies the gastric body. Stool gas pattern is normal. No free air, soft tissue masses or organomegaly. IMPRESSION: No acute disease - NG tube overlying the proximal gastric body. Interpreted and Authenticated by: Mejia Lambert 01/09/20
[2020-01-09] MEDS: MIDAZOLAM PF 50 MG in 0.9 % SODIUM CHLORIDE 90 ML IV SCH (15:20)
[2020-01-09] MEDS: CEFEPIME 2 GM VIAL IV SCH ×2 (16:00→22:05)
[2020-01-09] MEDS ORDERED: ceFAZolin 1 GM VIAL ONE (16:09)
[2020-01-09] MEDS ORDERED: VANCOMYCIN 2,000 MG in 0.9 % SODIUM CHLORIDE 500 ML IV ONE (17:00)
[2020-01-09] MEDS: 0.9 % SODIUM CHLORIDE 1,000 ML IV SCH (17:00)
[2020-01-09] MEDS: INSULIN LISPRO 1 UNIT/0.01 ML UNIT SQ SCH ×2 (17:39→21:20)
--- NOTE | 2020-01-09 17:55 | XRay Report ---
CLINICAL INFORMATION: Central line placement COMPARISON: None. FINDINGS: Right IJ central line tip overlies the SVC right atrial junction. There is no pneumothorax or other complication from line placement. The heart is mildly enlarged. Mediastinum and pulmonary vessels are normal. Moderate patchy infiltrate seen in the mid and lower lungs. IMPRESSION: Patchy middle and lower lung infiltrates no change from recent CT Right IJ central line in satisfactory position without complication. Endotracheal tip 3 cm above the mariusz Interpreted and Authenticated by: Mejia Lambert 01/09/20
[2020-01-09] MEDS ORDERED: 0.9 % SODIUM CHLORIDE 10 ML SYRINGE IV PRN (19:50)
[2020-01-09] MEDS: DOCUSATE SODIUM 100 MG CAPSULE PO SCH (21:13)
[2020-01-09] MEDS: HEPARIN 5,000 UNIT/ML VIAL SQ SCH (21:13)
[2020-01-09] MEDS: SENNOSIDES 1 TABLET PO SCH (21:19)
[2020-01-09] MEDS: amLODIPine 10 MG TABLET PO SCH (21:20)
[2020-01-09] MEDS: PROPRANOLOL 60 MG CAP.XL.24H PO SCH (21:20)
[2020-01-09] MEDS: ASPIRIN 81 MG TAB.CHEW PO SCH (21:20)
[2020-01-09] MEDS: CHLORHEXIDINE GLUCONATE 1 ML ORAL.SOL SWABMOUTH SCH (21:28)
[2020-01-09] MEDS: FAMOTIDINE/PF 20 MG/2 ML VIAL IV SCH (21:28)
[2020-01-10] MEDS ORDERED: VANCOMYCIN 500 MG in 0.9 % SODIUM CHLORIDE 100 ML IV ONE (01:00)
[2020-01-10] MEDS: MIDAZOLAM PF 50 MG in 0.9 % SODIUM CHLORIDE 90 ML IV SCH ×2 (04:46→17:37)
[2020-01-10] MEDS: CEFEPIME 2 GM VIAL IV SCH ×3 (05:51→21:54)
[2020-01-10] MEDS: 0.9 % SODIUM CHLORIDE 10 ML SYRINGE IV SCH ×6 (05:52→20:52)
[2020-01-10 07:37] LABS: Basophils # (Auto) 0.04 K/mcL (0.00-0.30); Basophils % (Auto) 0.3 % (0.0-2.0); Eosinophils # (Auto) 0.02 K/mcL (0.00-0.70); Eosinophils % (Auto) 0.2 % (0.0-7.0); Granulocytes % (Auto) 86.2 % (38.0-78.0); Hematocrit 32.8 % (40.1-51.0); Hemoglobin 10.9 g/dL (13.7-17.5); Lymphocytes # (Auto) 0.57 K/mcL (1.50-4.80); Lymphocytes % (Auto) 4.3 % (15.5-49.0); Mean Cell Volume 90.9 fL (80.0-100.0); Mean Corpuscular HGB Conc 33.2 g/dL (31.0-36.0); Mean Platelet Volume 10.2 fL (7.4-10.4); Monocytes # (Auto) 1.18 K/mcL (0.10-0.90); Platelet Count 223 K/mcL (140-440); RBC 3.61 M/mcL (4.63-6.08); Red Cell Distribution Width 13.9 % (11.5-14.5); WBC 13.1 K/mcL (4.50-11.00)
--- NOTE | 2020-01-10 08:37 | XRay Report ---
CLINICAL INFORMATION: Mechanically Ventilated COMPARISON: 01/09/2020 FINDINGS: The heart is normal for technique. Mediastinum and pulmonary vessels are normal. Endotracheal tube and right IJ central line remain in stable satisfactory position. There is now dense atelectasis of the entire left lower lobe. Patchy infiltrates in the midlungs have improved however. Small bilateral pleural effusions noted. IMPRESSION: Improving mid lung infiltrates, but there is now dense consolidative atelectasis of the entire left lower lobe - suspect mucous plug obstructing the left lower lobe bronchus. Endotracheal tube right IJ line in satisfactory position. Interpreted and Authenticated by: Mejia Lambert 01/10/20
[2020-01-10] MEDS: INSULIN LISPRO 1 UNIT/0.01 ML UNIT SQ SCH ×4 (09:37→21:35)
[2020-01-10 09:39] LABS: Erythrocyte Sedimentation Rate 106 mm/hr (0-15)
[2020-01-10] MEDS: OMEPRAZOLE 20 MG CAPSULE PO SCH (09:41)
--- NOTE | 2020-01-10 09:45 | Orthopedic Progress Note ---
SUBJECTIVE Subjective Patient information: Note initiated : 01/10/20 at 9:42 am Service Date, if different from initiated Date: [] Patient: Hola Cleary 54 y/o M admitted on 01/09/20 for Sob, bilateral swelling in legs. Chief Complaint: Pt intubated with concern for COVID-19. No ortho concerns per nursing. Nursing stated pt is receiving IV abx. Constitutional Vitals: Vital Signs Temp Pulse Resp BP Pulse Ox 98.2 F 89 21 113/67 98 01/10/20 07:01 01/10/20 09:01 01/10/20 08:15 01/10/20 09:01 01/10/20 09:01 Period Temp Pulse Resp BP Sys/Ralph Pulse Ox Last 24 Hr 97.6 F-98.6 F 82-102 11-30 104-149/57-98 92-100 Intake and Output 01/09/20 01/10/20 01/10/20 21:59 05:59 13:59 Intake Total 693 115 0 Output Total 3490 1350 370 Balance -2797 -1235 -370 Weight 311 lb 11.2 oz Intake & Output: Intake & Output 01/09/20 01/10/20 01/10/20 21:59 05:59 13:59 Intake Total 693 115 0 Output Total 3490 1350 370 Balance -2797 -1235 -370 Weight 311 lb 11.2 oz Intake: IV 693 115 Sodium Chloride 0.9% 1,000 ml @ 67 50 mls/hr IV .Q20H [facility] Rx#: [id number] Versed 50 mg In Sodium Chloride 58 42 0.9% 90 ml @ 0.02 MG/KG/HR 5. 715 mls/hr IV Q24H [facility] Rx#: [id number] Vancomycin 2,000 mg In Sodium 500 Chloride 0.9% 500 ml @ 250 mls/ hr IV ONCE ONE Rx#:[id number] fentaNYL 2,500 MCG In Sodium 68 73 Chloride 0.9% 200 ml @ 25 MCG/ HR 2.5 mls/hr IV Q24H [facility] Rx#: [id number] Tube Feeding 0 Output: Gastric Drainage 0 Right Nare NG/OG 0 Drainage 210 105 Right Knee 210 105 Urine Catheter Amount 3280 1245 370 Other: Urine Appearance Clear Clear Clear Uretheral (Harmon) Clear Urine Color Bright Yellow Bright Yellow Bright Yellow Uretheral (Harmon) Bright Yellow Urine Odor Normal Normal OBJ DATA Labs CBC & Chem 7: 01/10/20 05:15 01/09/20 09:34 Labs: Abnormal Lab Results 01/10/20 01/10/20 01/09/20 05:15 05:15 10:29 WBC 13.1 H RBC 3.61 L Hgb 10.9 L Hct 32.8 L Gran % 86.2 H Lymph % (Auto) 4.3 L [place] % (Auto) Gran # 11.30 H Lymph # (Auto) 0.57 L [place] # (Auto) 1.18 H ESR 106 H PT INR D-Dimer Chloride Anion Gap BUN Total Bilirubin Alkaline Phosphatase C-Reactive Protein 38.5 H NT-Pro-B Natriuret Pep Albumin/Globulin Ratio Urine Protein 30 A Urine Occult Blood 0.03 A Urine Urobilinogen 4.0 A Urine Bacteria Few A 01/09/20 01/09/20 01/09/20 09:34 09:34 09:34 WBC RBC Hgb Hct Gran % Lymph % (Auto) [place] % (Auto) Gran # Lymph # (Auto) [place] # (Auto) ESR PT 16.4 H INR 1.3 H D-Dimer 3.81 H Chloride 94 L Anion Gap 17.0 H BUN 35 H Total Bilirubin 1.6 H Alkaline Phosphatase 221 H C-Reactive Protein NT-Pro-B Natriuret Pep 1312.0 H Albumin/Globulin Ratio 0.9 L Urine Protein Urine Occult Blood Urine Urobilinogen Urine Bacteria 01/09/20 09:34 WBC 14.1 H RBC 3.96 L Hgb 12.2 L Hct 35.8 L Gran % 82.5 H Lymph % (Auto) 3.1 L [place] % (Auto) 14.0 H Gran # 11.63 H Lymph # (Auto) 0.44 L [place] # (Auto) 1.98 H ESR PT INR D-Dimer Chloride Anion Gap BUN Total Bilirubin Alkaline Phosphatase C-Reactive Protein NT-Pro-B Natriuret Pep Albumin/Globulin Ratio Urine Protein Urine Occult Blood Urine Urobilinogen Urine Bacteria Meds: Medications Hydrocodone Bitart/Acetaminophen ([place] 10/325mg) 0 tab PO Q4HP PRN; Protocol PRN Reason: Per Pain Protocol Amlodipine Besylate (Norvasc) 10 mg PO HS BO Last Admin: 01/09/20 21:20 Dose: Not Given Documented by: Aspirin (Aspirin) 81 mg PO BID [facility] Last Admin: 01/09/20 21:20 Dose: Not Given Documented by: Bisacodyl (Dulcolax) 10 mg GA Q2-3DAYS PRN PRN Reason: Constipation Cefepime HCl (Maxipime) 2 gm IV Q8H [facility]; Protocol Last Admin: 01/10/20 05:51 Dose: 2 gm Documented by: Chlorhexidine Gluconate (Peridex) 15 ml SWABMOUTH BID [facility] Last Admin: 01/09/20 21:28 Dose: 15 ml Documented by: Dextrose (Dextrose 50%) 0 ml IV UD PRN PRN Reason: Hypoglycemia Diagnostic Test (Pha) (Accu-Chek) 1 each FS ACHS [facility] Last Admin: 01/10/20 09:37 Dose: 1 each Documented by: Docusate Sodium (Colace) 100 mg PO BID [facility] Last Admin: 01/09/20 21:13 Dose: Not Given Documented by: Famotidine (Pepcid) 20 mg IV Q12 [facility] Last Admin: 01/09/20 21:28 Dose: 20 mg Documented by: Glucose (Insta-Glucose) 15 gm PO PRN PRN PRN Reason: Hypoglycemia Heparin Sodium (Porcine) (Heparin) 5,000 unit SQ Q12 [facility] Last Admin: 01/09/20 21:13 Dose: Not Given Documented by: Hydrochlorothiazide (Oretic) 12.5 mg PO DAILY [facility] Hydromorphone HCl (Dilaudid) 0 mg IV Q2HP PRN; Protocol PRN Reason: Per Pain Protocol Midazolam HCl 50 mg/ Sodium (Chloride) 100 mls @ 5.715 mls/hr IV Q24H [facility]; Protocol Last Admin: 01/10/20 04:46 Dose: 0.02 mg/kg/hr, 5.715 mls/hr Documented by: Fentanyl 2,500 mcg/ Sodium (Chloride) 250 mls @ 2.5 mls/hr IV Q24H [facility]; Protocol Last Titration: 01/10/20 03:10 Dose: 100 mcg/hr, 10 mls/hr Documented by: Vancomycin HCl 2,000 mg/ (Sodium Chloride) 500 mls @ 250 mls/hr IV Q12H [facility] Sodium Chloride (Sodium Chloride 0.9%) 1,000 mls @ 50 mls/hr IV .Q20H [facility] Last Infusion: 01/09/20 19:25 Dose: 50 mls/hr Documented by: Insulin Human Lispro (Humalog) 0 unit SQ ACHS [facility]; Protocol Last Admin: 01/10/20 09:37 Dose: Not Given Documented by: Losartan Potassium (Cozaar) 100 mg PO DAILY [facility] Magnesium Hydroxide (Milk Of Magnesia) 30 ml PO BIDP PRN PRN Reason: Constipation Omeprazole (Prilosec) 40 mg PO ACB [facility] Last Admin: 01/10/20 09:41 Dose: Not Given Documented by: Ondansetron HCl (Zofran) 4 mg IV Q4HP PRN; Protocol PRN Reason: Nausea And Vomiting Fluvoxamine 100 Mg (Tab) 1 dose PO DAILY [facility] Polyethylene Glycol (Miralax) 17 gm PO DAILYP PRN PRN Reason: Constipation Propranolol HCl (Inderal La) 120 mg PO [facility] Last Admin: 01/09/20 21:20 Dose: Not Given Documented by: Senna (Senokot) 2 tab PO [facility] Last Admin: 01/09/20 21:19 Dose: Not Given Documented by: Sodium Biphosphate/Sodium Phosphate (Fleets Adult) 1 dose GA Q3-4DAYS PRN PRN Reason: Constipation Sodium Chloride (Saline Flush) 10 ml IV Q8 [facility] Last Admin: 01/10/20 09:38 Dose: 10 ml Documented by: Sodium Chloride (Saline Flush) 10 ml IV Q12 [facility] Last Admin: 01/09/20 21:28 Dose: 10 ml Documented by: Sodium Chloride (Saline Flush) 10 ml IV UD PRN PRN Reason: To keep ports patent Throat Lozenges (Cepacol) 1 lozenge PO PRN PRN PRN Reason: Sore Throat Vancomycin HCl (Vancomycin Per Pharmacy) 1 order IV UD [facility]; Protocol A/P Time Spent With Patient Time: Total time spent is greater than 50% in coordination of care (as documented) at patient's floor/unit and/or counseling patient: Pt will cont with medical management for pnemuonia and infected TKA.
[2020-01-10] MEDS: HYDROCHLOROTHIAZIDE 12.5 MG CAPSULE PO SCH (09:51)
[2020-01-10] MEDS: DOCUSATE SODIUM 100 MG CAPSULE PO SCH ×2 (09:51→21:24)
[2020-01-10] MEDS: LOSARTAN 50 MG TABLET PO SCH (09:51)
[2020-01-10] MEDS: ASPIRIN 81 MG TAB.CHEW PO SCH ×2 (09:51→20:51)
[2020-01-10] MEDS ORDERED: FUROSEMIDE 20 MG/2 ML VIAL IV ONE (09:55)
[2020-01-10] MEDS: FAMOTIDINE/PF 20 MG/2 ML VIAL IV SCH ×2 (10:15→20:51)
[2020-01-10] MEDS: HEPARIN 5,000 UNIT/ML VIAL SQ SCH ×2 (10:15→20:51)
[2020-01-10] MEDS: CHLORHEXIDINE GLUCONATE 1 ML ORAL.SOL SWABMOUTH SCH ×2 (10:15→20:52)
[2020-01-10] MEDS: VANCOMYCIN 2,000 MG in 0.9 % SODIUM CHLORIDE 500 ML IV SCH ×2 (10:17→21:55)
--- NOTE | 2020-01-10 10:27 | Internal Med Progress Note ---
SUBJECTIVE Subjective Patient information: Note initiated : 01/10/20 at 10:22 am Service Date, if different from initiated Date: [] Patient: Hola Cleary 54 y/o M admitted on 01/09/20 for Sob, bilateral swelling in legs. Chief Complaint: [] Mr. Fowler is a 54-year-old with history of hypertension/DJD who presented to the ER this morning with shortness of breath along with bilateral lower extr emity swelling over the last 3 days. Patient work-up was suggestive of possible CHF/sepsis or PE as per Dr. Murray ER physician's initial evaluation. He was diagnosed with right prosthetic knee hardware infection following positive synovial fluid aspirate performed at Dr. No's clinic. He was taken to the OR directly from ER by orthopedics for surgical intervention/joint washout. Intraoperatively patient became hypoxic requiring 100% oxygen on mechanical ventilation. Hospital service was consulted by anesthesia Dr. Medina regarding patient deteriorating status/hypoxia and need for further evaluation. Patient's dramatic worsening respiratory status points to a couple of likely possibilities including an acute PE/CHF-flash pulmonary edema or a manifestation of severe sepsis. Patient is currently undergoing surgery and following discussion with anesthesia it was determined that the patient would require transfer to the ICU on mechanical ventilation and will receive an emergent CT angiogram chest to evaluate for PE and the need for anticoagulation/TPA if hemodynamically unstab le. Also patient will be initiated on broad antibiotic coverage while blood cultures/ABG/lactic acid will be obtained. Patient be started on ICU sedation on midazolam/fentanyl. No family members available for further history Most of the history was obtained from review of medical records, ER physician Dr. Hong Murray and from anesthesia Dr. Medina. Patient was received in ICU on mechanical ventilation. chest imaging/CT/labs including lactic acid/ABG in ICU sedation was performed. Harmon's catheter draining clear urine. 01/09-patient on mechanical ventilation. On midazolam/ fentanyl for sedation. Tidal volume 510/PEEP 8 FiO2 60%. Blood gas 7.43/44/95. Plateau pressure 25. ID consulted. Continuing cefepime/vancomycin. Initiate low-dose diuretics. Chest imaging shows left lower lobe whiteout with possible mucous plug. Continue CPT. Constitutional Vitals: Vital Signs Temp Pulse Resp BP Pulse Ox 98.3 F 82 21 106/63 99 01/10/20 10:01 01/10/20 10:01 01/10/20 08:15 01/10/20 10:01 01/10/20 10:01 Period Temp Pulse Resp BP Sys/Ralph Pulse Ox Last 24 Hr 97.6 F-98.6 F 82-102 11-30 104-149/57-98 92-100 Intake and Output 01/09/20 01/10/20 01/10/20 21:59 05:59 13:59 Intake Total 693 115 0 Output Total 3490 1350 510 Balance -2797 -1235 -510 Weight 141.385 kg on mechanical ventilation Harmon is draining clear urine Diminished breath sounds left side No telemetry events Intake & Output: Intake & Output 01/09/20 01/10/20 01/10/20 21:59 05:59 13:59 Intake Total 693 115 0 Output Total 3490 1350 510 Balance -2797 -1235 -510 Weight 141.385 kg Intake: IV 693 115 Sodium Chloride 0.9% 1,000 ml @ 67 50 mls/hr IV .Q20H [facility] Rx#: [id number] Versed 50 mg In Sodium Chloride 58 42 0.9% 90 ml @ 0.02 MG/KG/HR 5. 715 mls/hr IV Q24H [facility] Rx#: [id number] Vancomycin 2,000 mg In Sodium 500 Chloride 0.9% 500 ml @ 250 mls/ hr IV ONCE ONE Rx#:[id number] fentaNYL 2,500 MCG In Sodium 68 73 Chloride 0.9% 200 ml @ 25 MCG/ HR 2.5 mls/hr IV Q24H [facility] Rx#: [id number] Tube Feeding 0 Output: Gastric Drainage 0 Right Nare NG/OG 0 Drainage 210 105 Right Knee 210 105 Urine Catheter Amount 3281 1300 510 Other: Urine Appearance Clear Clear Clear Uretheral (Harmon) Clear Urine Color Bright Yellow Bright Yellow Dark Yellow Uretheral (Harmon) Bright Yellow Urine Odor Normal Normal OBJ DATA Labs CBC & Chem 7: 01/10/20 05:15 01/09/20 09:34 Labs: Abnormal Lab Results 01/10/20 01/10/20 01/09/20 05:15 05:15 10:29 WBC 13.1 H RBC 3.61 L Hgb 10.9 L Hct 32.8 L Gran % 86.2 H Lymph % (Auto) 4.3 L [place] % (Auto) Gran # 11.30 H Lymph # (Auto) 0.57 L [place] # (Auto) 1.18 H ESR 106 H PT INR D-Dimer Chloride Anion Gap BUN Total Bilirubin Alkaline Phosphatase C-Reactive Protein 38.5 H NT-Pro-B Natriuret Pep Albumin/Globulin Ratio Urine Protein 30 A Urine Occult Blood 0.03 A Urine Urobilinogen 4.0 A Urine Bacteria Few A 01/09/20 01/09/20 01/09/20 09:34 09:34 09:34 WBC RBC Hgb Hct Gran % Lymph % (Auto) [place] % (Auto) Gran # Lymph # (Auto) [place] # (Auto) ESR PT 16.4 H INR 1.3 H D-Dimer 3.81 H Chloride 94 L Anion Gap 17.0 H BUN 35 H Total Bilirubin 1.6 H Alkaline Phosphatase 221 H C-Reactive Protein NT-Pro-B Natriuret Pep 1312.0 H Albumin/Globulin Ratio 0.9 L Urine Protein Urine Occult Blood Urine Urobilinogen Urine Bacteria 01/09/20 09:34 WBC 14.1 H RBC 3.96 L Hgb 12.2 L Hct 35.8 L Gran % 82.5 H Lymph % (Auto) 3.1 L [place] % (Auto) 14.0 H Gran # 11.63 H Lymph # (Auto) 0.44 L [place] # (Auto) 1.98 H ESR PT INR D-Dimer Chloride Anion Gap BUN Total Bilirubin Alkaline Phosphatase C-Reactive Protein NT-Pro-B Natriuret Pep Albumin/Globulin Ratio Urine Protein Urine Occult Blood Urine Urobilinogen Urine Bacteria Meds: Medications Hydrocodone Bitart/Acetaminophen ([place] 10/325mg) 0 tab PO Q4HP PRN; Protocol PRN Reason: Per Pain Protocol Amlodipine Besylate (Norvasc) 10 mg PO HS [facility] Last Admin: 01/09/20 21:20 Dose: Not Given Documented by: Aspirin (Aspirin) 81 mg PO BID [facility] Last Admin: 01/10/20 09:51 Dose: Not Given Documented by: Bisacodyl (Dulcolax) 10 mg [place] Q2-3DAYS PRN PRN Reason: Constipation Cefepime HCl (Maxipime) 2 gm IV Q8H [facility]; Protocol Last Admin: 01/10/20 05:51 Dose: 2 gm Documented by: Chlorhexidine Gluconate (Peridex) 15 ml SWABMOUTH BID [facility] Last Admin: 01/10/20 10:15 Dose: 15 ml Documented by: Dextrose (Dextrose 50%) 0 ml IV UD PRN PRN Reason: Hypoglycemia Diagnostic Test (Pha) (Accu-Chek) 1 each FS [facility] Last Admin: 01/10/20 09:37 Dose: 1 each Documented by: Docusate Sodium (Colace) 100 mg PO BID [facility] Last Admin: 01/10/20 09:51 Dose: Not Given Documented by: Famotidine (Pepcid) 20 mg IV Q12 [facility] Last Admin: 01/10/20 10:15 Dose: 20 mg Documented by: Glucose (Insta-Glucose) 15 gm PO PRN PRN PRN Reason: Hypoglycemia Heparin Sodium (Porcine) (Heparin) 5,000 unit SQ Q12 [facility] Last Admin: 01/10/20 10:15 Dose: 5,000 unit Documented by: Hydrochlorothiazide (Oretic) 12.5 mg PO DAILY [facility] Last Admin: 01/10/20 09:51 Dose: Not Given Documented by: Hydromorphone HCl (Dilaudid) 0 mg IV Q2HP PRN; Protocol PRN Reason: Per Pain Protocol Midazolam HCl 50 mg/ Sodium (Chloride) 100 mls @ 5.715 mls/hr IV Q24H [facility]; Protocol Last Admin: 01/10/20 04:46 Dose: 0.02 mg/kg/hr, 5.715 mls/hr Documented by: Fentanyl 2,500 mcg/ Sodium (Chloride) 250 mls @ 2.5 mls/hr IV Q24H [facility]; Protoco l Last Titration: 01/10/20 03:10 Dose: 100 mcg/hr, 10 mls/hr Documented by: Vancomycin HCl 2,000 mg/ (Sodium Chloride) 500 mls @ 250 mls/hr IV Q12H [facility] Last Admin: 01/10/20 10:17 Dose: 250 mls/hr Documented by: Sodium Chloride (Sodium Chloride 0.9%) 1,000 mls @ 50 mls/hr IV .Q20H [facility] Last Infusion: 01/09/20 19:25 Dose: 50 mls/hr Documented by: Insulin Human Lispro (Humalog) 0 unit SQ [facility]; Protocol Last Admin: 01/10/20 09:37 Dose: Not Given Documented by: Losartan Potassium (Cozaar) 100 mg PO DAILY [facility] Last Admin: 01/10/20 09:51 Dose: Not Given Documented by: Magnesium Hydroxide (Milk Of Magnesia) 30 ml PO BIDP PRN PRN Reason: Constipation Omeprazole (Prilosec) 40 mg PO ACB [facility] Last Admin: 01/10/20 09:41 Dose: Not Given Documented by: Ondansetron HCl (Zofran) 4 mg IV Q4HP PRN; Protocol PRN Reason: Nausea And Vomiting Fluvoxamine 100 Mg (Tab) 1 dose PO DAILY [facility] Last Admin: 01/10/20 09:51 Dose: Not Given Documented by: Polyethylene Glycol (Miralax) 17 gm PO DAILYP PRN PRN Reason: Constipation Propranolol HCl (Inderal La) 120 mg PO HS [facility] Last Admin: 01/09/20 21:20 Dose: Not Given Documented by: Senna (Senokot) 2 tab PO [facility] Last Admin: 01/09/20 21:19 Dose: Not Given Documented by: Sodium Biphosphate/Sodium Phosphate (Fleets Adult) 1 dose FL Q3-4DAYS PRN PRN Reason: Constipation Sodium Chloride (Saline Flush) 10 ml IV Q8 [facility] Last Admin: 01/10/20 09:38 Dose: 10 ml Documented by: Sodium Chloride (Saline Flush) 10 ml IV Q12 [facility] Last Admin: 01/10/20 09:52 Dose: 10 ml Documented by: Sodium Chloride (Saline Flush) 10 ml IV UD PRN PRN Reason: To keep ports patent Throat Lozenges (Cepacol) 1 lozenge PO PRN PRN PRN Reason: Sore Throat Vancomycin HCl (Vancomycin Per Pharmacy) 1 order IV UD [facility]; Protocol A/P Narrative A/P Narrative: * Acute hypoxic respiratory failure-secondary to bilateral lower lobe pneumonia. On antibiotic coverage. COVID-19 pending. On mechanical ventilation * Severe Sepsis with endorgan dysfunction/AMS-continuing antibiotic coverage and management per guidelines, pressors if indicated. Secure central line * Staph aureus septic arthritis. Status post operative intervention by orthopedics. Managed by orthopedics * Mechanical ventilation per protocol. Continue sedation on fentanyl/midazolam. Plateau pressure 25. Serial ABGs and chest imaging. * History of hypertension hold antihypertensives * GERD on PPI * History of alcoholism-monitor for withdrawals * Full code * Prophylaxis will be initiated on heparin Plan * Serial ABG/chest imaging * Broad antibiotic/sedations were mechanical ventilation * ID consult * CPT/aggressive suctioning * Gentle diuresis * Monitor renal function Critical care time spent in excess of 35 minutes on mechanical ventilation management Time Spent With Patient Time: Total time spent is greater than 50% in coordination of care (as documented) at patient's floor/unit and/or counseling patient: QUALITY Stroke Symptom Onset Unknown: No VTE Deep Vein Thrombosis/Pulmonary Embolism Present on Admission: No
--- NOTE | 2020-01-10 10:33 | Procedure Note ---
PROC Central Line Placement Right IJ: Consent obtained: verbal consent Date of Procedure: 01/10/20 Time out performed: Yes Patient placed on monitor/pulse ox: Yes MD prep: sterile gown, sterile gloves and cap Central line prep: 2% Chlorhexidine scrub Local anesthesia used: lidocaine 1% Ultrasound used for placement: Yes Central line lumen inserted: quad and 16 cm Post procedure: sutured in place, good blood return, all ports aspirated, flushed, capped and sterile dressing applied Post procedure x-ray: tip of catheter in good position and no pneumothorax seen Patient tolerated procedure: well and no complications Additional comments: Telephone consent obtained from patient's father, witness nurse
[2020-01-10 11:16] LABS: ALT/SGPT 23 U/l (0-40); AST/SGOT 23 U/l (0-37); Albumin 2.4 gm/dL (3.2-5.2); Albumin/Globulin Ratio 0.7 (1.0-2.3); Alkaline Phosphatase 161 U/L (39-117); Bilirubin,Direct 0.5 mg/dL (0.0-0.3); Bilirubin,Total 0.8 mg/dL (0.0-1.0); Carbon Dioxide 26 mmol/L (22-30); Chloride 99 mmol/L (96-108); Globulin 3.6 gm/dL (2.2-3.7); Glomerular Filtration Rate 101; Glucose 138 mg/dL (70-105); Lactate Dehydrogenase 143 U/L (94-250); Phosphorous 3.3 mg/dL (2.7-4.5); Triglycerides 104 mg/dl (<150); Uric Acid 7.9 mg/dL (2.5-8.0)
[2020-01-10 11:17] LABS: Blood Urea Nitrogen 25 mg/dl (6-20)
[2020-01-10] MEDS: 0.9 % SODIUM CHLORIDE 250 ML IV SCH (15:00)
[2020-01-10] MEDS: fentaNYL 2,500 MCG in 0.9 % SODIUM CHLORIDE 200 ML IV SCH (15:00)
[2020-01-10] MEDS: 0.9 % SODIUM CHLORIDE 1,000 ML IV SCH (15:01)
--- NOTE | 2020-01-10 16:00 | XRay Report ---
CLINICAL INFORMATION: NG placement COMPARISON: 01/09/2020 FINDINGS: NG tube overlies the gastric body. Stool gas pattern is normal. No free air or soft tissue mass. IMPRESSION: NG tube overlies the gastric body. No acute disease disease Interpreted and Authenticated by: Mejia Lambert 01/10/20
--- NOTE | 2020-01-10 16:16 | XRay Report ---
CLINICAL INFORMATION: new ng tube placement COMPARISON: None. FINDINGS: NG tube overlies the distal gastric body. The stool gas pattern is normal. No free air or soft tissue mass. IMPRESSION: No acute disease. NG tip overlying the distal gastric body. Interpreted and Authenticated by: Mejia Lambert 01/10/20
--- NOTE | 2020-01-10 17:42 | XRay Report ---
CLINICAL INFORMATION: Infiltrates COMPARISON: 01/10/2020 FINDINGS: The ET tube, and right IJ central line is stable satisfactory position. Borderline cardiomegaly is unchanged. Mediastinum and pulmonary vessels are normal. Left basilar atelectasis is much better aerated with patchy residual atelectasis. Patchy infiltrates in the perihilar regions continue to improve. IMPRESSION: Improvement in patchy bilateral infiltrates and also left lower lobe atelectasis. Interpreted and Authenticated by: Mejia Lambert 01/10/20
[2020-01-10] MEDS: SENNOSIDES 1 TABLET PO SCH (20:51)
[2020-01-10] MEDS: PROPRANOLOL 60 MG CAP.XL.24H PO SCH (20:52)
[2020-01-10] MEDS: amLODIPine 10 MG TABLET PO SCH (20:52)
--- NOTE | 2020-01-10 21:31 | Infectious Disease Consult ---
HPI Data of Consult Primary Care Provider: Scott Ibanez Consult Narrative Patient Information: Note initiated : 01/10/20 at 9:24 pm Service Date, if different from initiated Date: [] Patient: Hola Cleary 54 y/o M admitted on 01/09/20 for Sob, bilateral swelling in legs. Chief Complaint: [HPI obtained from chart review and talking to father of the patient as patient is intubated 54-year-old man with past medical history pertinent for chronic alcohol abuse [drinking several cans of beer every day for last 20 years] is admitted after complaining of shortness of breath for last few days and right knee swelling. Patient had a right total knee arthroplasty done in July 2019 for severe osteoarthritis. Patient's father denied knowing if patient had any complaints of fever, falls, skin blisters or infections sick contacts. He does not think any recent contacts of the patient had COVID-19. Patient was also complaining of both lower extremity edema and swelling. Patient has been coughing dark yellow sputum for last few days. Patient was seen by Dr. No in his outpatient clinic and his knee was tapped [01/08/2020] with synovial fluid cultures sent for Gram stain and sensitivity. Patient was taken to the OR on 01/09/2020 in noon, and underwent complete removal of previously placed right TKA along with irrigation and debridement, placement of antibiotic beads. During surgery he became hypoxic needing 100% oxygen, ABG showing pH of 7.28, PO2 of 28, PaCO2 of 63. Patient was sent to ICU subsequently while being mechanically ventilated. Of note admission white blood cell count was 14.1, d-dimer of 3.6. CT chest showed "Moderate solid infiltrate in both posterior lower lobes and lingula with smaller infiltrates in both posterior upper lobes. Mild cardiomegaly with extremely heavy fibrofatty and calcific plaque in the LAD smaller amounts in the circumflex and right artery". Blood cultures were sent. At time of my visit, blood cultures are already come back positive for staph aureus, 2 out of 2 sets, sensitivities pending. Father present at bedside confirmed above history. Mentions the first time his son has gotten this much sick. Denies any diagnosis of diabetes, injection drug use by his son. 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 Family History Unknown Cardiac disease Essential hypertension Mother Cervical disc disease Family/Other Stroke, Onset Age: 50 Social History marital status: other: Brother at age 43/estranged children/father at age 50 smoking status: Never smoker MEDS/ALLERGIES Home Medications and Allergies Home Medications Medication Instructions Recorded Confirmed Type amlodipine 10 mg PO HS 07/09/19 01/09/20 History fluvoxamine 100 mg PO DAILY 07/09/19 01/09/20 History hydrochlorothiazide 12.5 mg PO DAILY 07/09/19 01/09/20 History losartan 100 mg PO DAILY 07/09/19 01/09/20 History omeprazole 40 mg PO ACB 07/09/19 01/09/20 History propranolol 120 mg PO HS 07/09/19 01/09/20 History aspirin 81 mg PO BID #30 tab.chew 07/18/19 01/09/20 Rx Allergies Allergy/AdvReac Type Severity Reaction Status Date / Time Penicillins Allergy Unknown Unknown Verified 01/09/20 09:00 Physical Examination Vital Signs Vital signs: Temp Pulse Resp BP Pulse Ox 36.8 C 113 H 20 118/76 96 01/10/20 19:19 01/10/20 20:30 01/10/20 20:30 01/10/20 20:01 01/10/20 20:30 Additional Exam Additional exam: intubated and sedated pupils reactive to light, equally chest has VBS with occasional crackles s1 soft s2 normal, no murmurs heard abd distended, BS ++ rt knee swollen, under surgiacl dressing, drain in place. peripheral edema over legs b/l right neck IJ central line Results Laboratory Findings CBC and BMP: 01/12/20 05:30 01/12/20 05:30 ABG, PT/INR, D-dimer: PT/INR, D-dimer PT 16.4 sec (11.9-14.5) H 01/09/20 09:34 INR 1.3 (0.9-1.1) H 01/09/20 09:34 D-Dimer 3.81 ug/ml (0.00-0.40) H 01/09/20 09:34 Abnormal lab findings: Abnormal Labs 01/09/20 01/09/20 01/09/20 09:34 09:34 09:34 WBC 14.1 H RBC 3.96 L Hgb 12.2 L Hct 35.8 L Gran % 82.5 H Lymph % (Auto) 3.1 L [place] % (Auto) 14.0 H Gran # 11.63 H Lymph # (Auto) 0.44 L [place] # (Auto) 1.98 H ESR PT INR D-Dimer 3.81 H Chloride 94 L Anion Gap 17.0 H BUN 35 H Glucose Total Bilirubin 1.6 H Direct Bilirubin GGT Alkaline Phosphatase 221 H C-Reactive Protein NT-Pro-B Natriuret Pep 1312.0 H Albumin Albumin/Globulin Ratio 0.9 L Urine Protein Urine Occult Blood Urine Urobilinogen Urine Bacteria 01/09/20 01/09/20 01/10/20 09:34 10:29 05:15 WBC 13.1 H RBC 3.61 L Hgb 10.9 L Hct 32.8 L Gran % 86.2 H Lymph % (Auto) 4.3 L [place] % (Auto) Gran # 11.30 H Lymph # (Auto) 0.57 L [place] # (Auto) 1.18 H ESR 106 H PT 16.4 H INR 1.3 H D-Dimer Chloride Anion Gap BUN Glucose Total Bilirubin Direct Bilirubin GGT Alkaline Phosphatase C-Reactive Protein NT-Pro-B Natriuret Pep Albumin Albumin/Globulin Ratio Urine Protein 30 A Urine Occult Blood 0.03 A Urine Urobilinogen 4.0 A Urine Bacteria Few A 01/10/20 01/10/20 05:15 09:22 WBC RBC Hgb Hct Gran % Lymph % (Auto) [place] % (Auto) Gran # Lymph # (Auto) [place] # (Auto) ESR PT INR D-Dimer Chloride Anion Gap BUN 25 H Glucose 138 H Total Bilirubin Direct Bilirubin 0.5 H GGT 108 H Alkaline Phosphatase 161 H C-Reactive Protein 38.5 H NT-Pro-B Natriuret Pep Albumin 2.4 L Albumin/Globulin Ratio 0.7 L Urine Protein Urine Occult Blood Urine Urobilinogen Urine Bacteria Microbiology: Microbiology 01/10/20 08:18 Sputum - Induced Gram Stain - Final 01/09/20 15:23 Blood Blood Culture - Preliminary 01/09/20 18:35 Blood Blood Culture - Preliminary Gram positive cocci 01/09/20 10:30 Nose MRSA (PCR) - Final A/P Narrative A/P Narrative: A: 1. Right knee prosthetic joint infection: synovial fluid Cx from 01/08/20 growing Staphylococcus aureus, sensitivity pending - POD 1 after irrigation and debridement, with removal of prosthesis, placement of antibiotic spacer 2. Acute hypoxic respiratory failure: on mechanical ventilation - concerns for aspiration being primary etiology although other possibilities could also coexist such as COVID-19, CHF (as NT pro BNP is ~1200, +ve peripheral edema) - Chest CT s/o - pt does have risk factors for aspiration: chronic alcohol use 3. Septic shock: sec to (1), (3) 4. Gram positive bacteremia: most likely sec to Staph aureus - MRSA nasal swab -ve - likely source (1) Recommendations: - Continue IV Vanc per pharmacy assisted dosing. Check trough before the 4 th dose (target 10-20) - Continue IV Cefepime 2 gm q8 hrs - sputum Cx - COVID 19 PCR testing on sputum or [employer] swab - await final sensitivities on knee Cx - await TTE results - repeat blood Cx (2 sets) tomorrow will follow Walt Marx MD Infectious Diseases Time Spent With Patient Time: Total time spent is greater than 50% in coordination of care (as do cumented) at patient's floor/unit and/or counseling patient:
[2020-01-11] MEDS: MIDAZOLAM PF 50 MG in 0.9 % SODIUM CHLORIDE 90 ML IV SCH ×2 (02:05→09:47)
[2020-01-11] MEDS: 0.9 % SODIUM CHLORIDE 250 ML IV SCH ×3 (04:00→21:51)
[2020-01-11] MEDS: 0.9 % SODIUM CHLORIDE 10 ML SYRINGE IV SCH ×8 (05:25→23:13)
[2020-01-11] MEDS: CEFEPIME 2 GM VIAL IV SCH ×3 (05:26→21:46)
[2020-01-11 06:44] LABS: ALT/SGPT 18 U/l (0-40); AST/SGOT 17 U/l (0-37); Albumin 2.2 gm/dL (3.2-5.2); Albumin/Globulin Ratio 0.6 (1.0-2.3); Alkaline Phosphatase 137 U/L (39-117); Bilirubin,Total 0.5 mg/dL (0.0-1.0); Blood Urea Nitrogen 25 mg/dl (6-20); Calcium 8.9 mg/dl (8.6-10.4); Carbon Dioxide 27 mmol/L (22-30); Chloride 100 mmol/L (96-108); Globulin 3.6 gm/dL (2.2-3.7); Glomerular Filtration Rate 107; Glucose 113 mg/dL (70-105); Lactate Dehydrogenase 133 U/L (94-250); Phosphorous 2.9 mg/dL (2.7-4.5); Triglycerides 111 mg/dl (<150); Uric Acid 7.2 mg/dL (2.5-8.0)
[2020-01-11 06:47] LABS: Bilirubin,Direct 0.3 mg/dL (0.0-0.3)
[2020-01-11] MEDS: INSULIN LISPRO 1 UNIT/0.01 ML UNIT SQ SCH ×3 (07:23→17:25)
[2020-01-11] MEDS: OMEPRAZOLE 20 MG CAPSULE PO SCH (07:32)
--- NOTE | 2020-01-11 08:32 | Orthopedic Progress Note ---
SUBJECTIVE Subjective Patient information: Note initiated : 01/11/20 at 8:30 am Service Date, if different from initiated Date: [] Patient: Hola Cleary 54 y/o M admitted on 01/09/20 for Sob, bilateral swelling in legs. Chief Complaint: Pt still intubated. No ortho concerns per nursing. Constitutional Vitals: Vital Signs Temp Pulse Resp BP Pulse Ox 100.9 F H 95 H 16 118/73 97 01/11/20 07:00 01/11/20 08:00 01/11/20 08:00 01/11/20 08:00 01/11/20 08:00 Period Temp Pulse Resp BP Sys/Ralph Pulse Ox Last 24 Hr 97.8 F-100.9 F 82-113 13-20 106-146/63-96 94-99 Intake and Output 01/10/20 01/11/20 01/11/20 21:59 05:59 13:59 Intake Total 1324 1099 91 Output Total 1040 695 330 Balance 284 404 -239 Weight 309 lb 8 oz Intake & Output: Intake & Output 01/10/20 01/11/20 01/11/20 21:59 05:59 13:59 Intake Total 1324 1099 91 Output Total 1040 695 330 Balance 284 404 -239 Weight 309 lb 8 oz Intake: IV 1155 818 Sodium Chloride 0.9% 1,000 ml @ 933 50 mls/hr IV .Q20H BO Rx#: [id number] Sodium Chloride 0.9% 250 ml @ 250 20 mls/hr IV .[id number] BO Rx#: [id number] Versed 50 mg In Sodium Chloride 129 68 0.9% 90 ml @ 0.02 MG/KG/HR 5. 715 mls/hr IV Q24H BO Rx#: [id number] Vancomycin 2,000 mg In Sodium 500 Chloride 0.9% 500 ml @ 250 mls/ hr IV Q12H BO Rx#:[id number] fentaNYL 2,500 MCG In Sodium 93 Chloride 0.9% 200 ml @ 25 MCG/ HR 2.5 mls/hr IV Q24H BO Rx#: [id number] Tube Feeding 49 161 76 GI Tube Flush 120 120 15 Output: Gastric Drainage 10 Right Nare NG/OG 10 Drainage 30 0 Right Knee 30 0 Drainage 60 Right Knee 60 Urine Catheter Amount 940 695 330 Other: Urine Appearance Clear Clear Clear Uretheral ([place]) Clear Urine Color Dark Yellow Dark Yellow Bright Yellow Uretheral ([place]) Dark Yellow Urine Odor Normal Strong OBJ DATA Labs CBC & Chem 7: 01/10/20 05:15 01/11/20 05:00 Labs: Abnormal Lab Results 01/11/20 01/10/20 01/10/20 05:00 09:22 05:15 WBC RBC Hgb Hct Gran % Lymph % (Auto) [place] % (Auto) Gran # Lymph # (Auto) [place] # (Auto) ESR PT INR D-Dimer Chloride Anion Gap BUN 25 H 25 H Glucose 113 H 138 H Total Bilirubin Direct Bilirubin 0.5 H GGT 94 H 108 H Alkaline Phosphatase 137 H 161 H C-Reactive Protein 38.5 H NT-Pro-B Natriuret Pep Total Protein 5.8 L Albumin 2.2 L 2.4 L Albumin/Globulin Ratio 0.6 L 0.7 L Urine Protein Urine Occult Blood Urine Urobilinogen Urine Bacteria 01/10/20 01/09/20 01/09/20 05:15 10:29 09:34 WBC 13.1 H RBC 3.61 L Hgb 10.9 L Hct 32.8 L Gran % 86.2 H Lymph % (Auto) 4.3 L [place] % (Auto) Gran # 11.30 H Lymph # (Auto) 0.57 L [place] # (Auto) 1.18 H ESR 106 H PT 16.4 H INR 1.3 H D-Dimer Chloride Anion Gap BUN Glucose Total Bilirubin Direct Bilirubin GGT Alkaline Phosphatase C-Reactive Protein NT-Pro-B Natriuret Pep Total Protein Albumin Albumin/Globulin Ratio Urine Protein 30 A Urine Occult Blood 0.03 A Urine Urobilinogen 4.0 A Urine Bacteria Few A 01/09/20 01/09/20 01/09/20 09:34 09:34 09:34 WBC 14.1 H RBC 3.96 L Hgb 12.2 L Hct 35.8 L Gran % 82.5 H Lymph % (Auto) 3.1 L [place] % (Auto) 14.0 H Gran # 11.63 H Lymph # (Auto) 0.44 L [place] # (Auto) 1.98 H ESR PT INR D-Dimer 3.81 H Chloride 94 L Anion Gap 17.0 H BUN 35 H Glucose Total Bilirubin 1.6 H Direct Bilirubin GGT Alkaline Phosphatase 221 H C-Reactive Protein NT-Pro-B Natriuret Pep 1312.0 H Total Protein Albumin Albumin/Globulin Ratio 0.9 L Urine Protein Urine Occult Blood Urine Urobilinogen Urine Bacteria Meds: Medications Hydrocodone Bitart/Acetaminophen ([place] 10/325mg) 0 tab PO Q4HP PRN; Protocol PRN Reason: Per Pain Protocol Amlodipine Besylate (Norvasc) 10 mg PO HS [facility] Last Admin: 01/10/20 20:52 Dose: Not Given Documented by: Aspirin (Aspirin) 81 mg PO BID [facility] Last Admin: 01/10/20 20:51 Dose: 81 mg Documented by: Bisacodyl (Dulcolax) 10 mg SD Q2-3DAYS PRN PRN Reason: Constipation Cefepime HCl (Maxipime) 2 gm IV Q8H [facility]; Protocol Last Admin: 01/11/20 05:26 Dose: 2 gm Documented by: Chlorhexidine Gluconate (Peridex) 15 ml [place] BID [facility] Last Admin: 01/10/20 20:52 Dose: 15 ml Documented by: Dextrose (Dextrose 50%) 0 ml IV UD PRN PRN Reason: Hypoglycemia Diagnostic Test (Pha) (Accu-Chek) 1 each FS ACHS [facility] Last Admin: 01/11/20 07:23 Dose: 1 each Documented by: Docusate Sodium (Colace) 100 mg PO BID [facility] Famotidine (Pepcid) 20 mg IV Q12 [facility] Last Admin: 01/10/20 20:51 Dose: 20 mg Documented by: Glucose (Insta-Glucose) 15 gm PO PRN PRN PRN Reason: Hypoglycemia Heparin Sodium (Porcine) (Heparin) 5,000 unit SQ Q12 [facility] Last Admin: 01/10/20 20:51 Dose: 5,000 unit Documented by: Hydrochlorothiazide (Oretic) 12.5 mg PO DAILY [facility] Last Admin: 01/10/20 09:51 Dose: Not Given Documented by: Hydromorphone HCl (Dilaudid) 0 mg IV Q2HP PRN; Protocol PRN Reason: Per Pain Protocol Midazolam HCl 50 mg/ Sodium (Chloride) 100 mls @ 5.715 mls/hr IV Q24H [facility]; Protocol Last Admin: 01/11/20 02:05 Dose: 0.05 mg/kg/hr, 15 mls/hr Documented by: Fentanyl 2,500 mcg/ Sodium (Chloride) 250 mls @ 2.5 mls/hr IV Q24H [facility]; Protocol Last Titration: 01/10/20 21:35 Dose: 150 mcg/hr, 15 mls/hr Documented by: Sodium Chloride (Sodium Chloride 0.9%) 1,000 mls @ 50 mls/hr IV .Q20H [facility] Last Admin: 01/10/20 15:01 Dose: 50 mls/hr Documented by: Sodium Chloride (Sodium Chloride 0.9%) 250 mls @ 20 mls/hr IV .[id number] [facility] Last Admin: 01/11/20 04:00 Dose: 20 mls/hr Documented by: Insulin Human Lispro (Humalog) 0 unit SQ ACHS [facility]; Protocol Last Admin: 01/11/20 07:23 Dose: Not Given Documented by: Losartan Potassium (Cozaar) 100 mg PO DAILY [facility] Last Admin: 01/10/20 09:51 Dose: Not Given Documented by: Magnesium Hydroxide (Milk Of Magnesia) 30 ml PO BIDP PRN PRN Reason: Constipation Omeprazole (Prilosec) 40 mg PO ACB [facility] Last Admin: 01/11/20 07:32 Dose: 40 mg Documented by: Ondansetron HCl (Zofran) 4 mg IV Q4HP PRN; Protocol PRN Reason: Nausea And Vomiting Fluvoxamine 100 Mg (Tab) 1 dose PO DAILY [facility] Last Admin: 01/10/20 09:51 Dose: Not Given Documented by: Polyethylene Glycol (Miralax) 17 gm PO DAILYP PRN PRN Reason: Constipation Propranolol HCl (Inderal La) 120 mg PO [facility] Last Admin: 01/10/20 20:52 Dose: Not Given Documented by: Senna (Senokot) 2 tab PO [facility] Last Admin: 01/10/20 20:51 Dose: 2 tab Documented by: Sodium Biphosphate/Sodium Phosphate (Fleets Adult) 1 dose SD Q3-4DAYS PRN PRN Reason: Constipation Sodium Chloride (Saline Flush) 10 ml IV Q8 [facility] Last Admin: 01/11/20 07:45 Dose: 10 ml Documented by: Sodium Chloride (Saline Flush) 10 ml IV Q12 [facility] Last Admin: 01/11/20 05:25 Dose: 10 ml Documented by: Sodium Chloride (Saline Flush) 10 ml IV UD PRN PRN Reason: To keep ports patent Throat Lozenges (Cepacol) 1 lozenge PO PRN PRN PRN Reason: Sore Throat Vancomycin HCl (Vancomycin Per Pharmacy) 1 order IV UD BO; Protocol A/P Assessment and plan (1) Infected prosthetic knee joint: Status: Acute Comment: Drain in R knee to be pulled today by nursing. Cont with medical management per hospitalist. Time Spent With Patient Time: Total time spent is greater than 50% in coordination of care (as documented) at patient's floor/unit and/or counseling patient:
[2020-01-11 08:35] LABS: Hematocrit 31.5 % (40.1-51.0); Hemoglobin 10.1 g/dL (13.7-17.5); Mean Cell Volume 93.2 fL (80.0-100.0); Mean Corpuscular HGB Conc 32.1 g/dL (31.0-36.0); Mean Platelet Volume 10.3 fL (7.4-10.4); Platelet Count 252 K/mcL (140-440); RBC 3.38 M/mcL (4.63-6.08); Red Cell Distribution Width 14.6 % (11.5-14.5); WBC 12.3 K/mcL (4.50-11.00)
[2020-01-11] MEDS: HEPARIN 5,000 UNIT/ML VIAL SQ SCH ×2 (08:41→21:03)
[2020-01-11] MEDS: FAMOTIDINE/PF 20 MG/2 ML VIAL IV SCH ×2 (08:41→21:03)
[2020-01-11] MEDS: ASPIRIN 81 MG TAB.CHEW PO SCH ×2 (08:41→21:03)
[2020-01-11] MEDS: HYDROCHLOROTHIAZIDE 12.5 MG CAPSULE PO SCH (08:41)
[2020-01-11] MEDS: LOSARTAN 50 MG TABLET PO SCH (08:43)
[2020-01-11] MEDS: DOCUSATE SODIUM 50 MG/5 ML ORAL.SOL PO SCH ×2 (08:43→21:04)
[2020-01-11] MEDS: CHLORHEXIDINE GLUCONATE 1 ML ORAL.SOL SWABMOUTH SCH ×2 (08:46→21:03)
[2020-01-11 09:37] LABS: Band Neutrophils % 4 % (0-10); Lymphocytes % 6 % (15-49); Monocytes % (Manual) 8 % (1-12); Myelocytes % 3 % (0-0); Nucleated Red Blood Cells 1 % (0-0); Platelet Estimate NORMAL (NORMAL); RBC Morphology NORMAL (NORMAL); Segmented Neutrophils % 79 % (38-78)
[2020-01-11] MEDS ORDERED: FUROSEMIDE 20 MG/2 ML VIAL IV ONE (09:47)
[2020-01-11] MEDS ORDERED: MAGNESIUM SULFATE 2 GM/50 ML BAG IV PRN (09:58)
[2020-01-11] MEDS ORDERED: POTASSIUM CHLORIDE 20 MEQ/15 ML ML PT ONE (09:58)
[2020-01-11] MEDS ORDERED: POTASSIUM CHLORIDE 20 MEQ/15 ML ML PO PRN (09:58)
--- NOTE | 2020-01-11 10:06 | Internal Med Progress Note ---
SUBJECTIVE Subjective Patient information: Note initiated : 01/11/20 at 10:01 am Service Date, if different from initiated Date: [] Patient: Hola Cleary 54 y/o M admitted on 01/09/20 for Sob, bilateral swelling in legs. Chief Complaint: [] Mr. Fowler is a 54-year-old with history of hypertension/DJD who presented to the ER this morning with shortness of breath along with bilateral lower extr emity swelling over the last 3 days. Patient work-up was suggestive of possible CHF/sepsis or PE as per Dr. Murray ER physician's initial evaluation. He was diagnosed with right prosthetic knee hardware infection following positive synovial fluid aspirate performed at Dr. No's clinic. He was taken to the OR directly from ER by orthopedics for surgical intervention/joint washout. Intraoperatively patient became hypoxic requiring 100% oxygen on mechanical ventilation. Hospital service was consulted by anesthesia Dr. Medina regarding patient deteriorating status/hypoxia and need for further evaluation. Patient's dramatic worsening respiratory status points to a couple of likely possibilities including an acute PE/CHF-flash pulmonary edema or a manifestation of severe sepsis. Patient is currently undergoing surgery and following discussion with anesthesia it was determined that the patient would require transfer to the ICU on mechanical ventilation and will receive an emergent CT angiogram chest to evaluate for PE and the need for anticoagulation/TPA if hemodynamically unstab le. Also patient will be initiated on broad antibiotic coverage while blood cultures/ABG/lactic acid will be obtained. Patient be started on ICU sedation on midazolam/fentanyl. No family members available for further history Most of the history was obtained from review of medical records, ER physician Dr. Hong Murray and from anesthesia Dr. Medina. Patient was received in ICU on mechanical ventilation. chest imaging/CT/labs including lactic acid/ABG in ICU sedation was performed. Harmon's catheter draining clear urine. 01/09-patient on mechanical ventilation. On midazolam/ fentanyl for sedation. Tidal volume 510/PEEP 8 FiO2 60%. Blood gas 7.43/44/95. Plateau pressure 25. ID consulted. Continuing cefepime/vancomycin. Initiate low-dose diuretics. Chest imaging shows left lower lobe whiteout with possible mucous plug. Continue CPT. 01/10-on mechanical ventilation. FiO2 45% PEEP 8. Persistent bilateral infiltrates. White count gradually downtrending now at 12 K. Plateau pressure 15, renal function stable, potassium 3.4 on replacement, COVID pending. No overnight fever chills. Broad antibiotic coverage on cefepime/vancomycin. Cultures gram-positive cocci. Echo results pending. Wean sedation for possible extubation. Constitutional Vitals: Vital Signs Temp Pulse Resp BP Pulse Ox 100.9 F H 95 H 18 118/73 92 01/11/20 07:00 01/11/20 08:00 01/11/20 09:30 01/11/20 08:00 01/11/20 09:30 Period Temp Pulse Resp BP Sys/Ralph Pulse Ox Last 24 Hr 97.8 F-100.9 F 88-113 13-20 110-146/68-96 76-99 Intake and Output 01/10/20 01/11/20 01/11/20 21:59 05:59 13:59 Intake Total 1324 1099 251 Output Total 1040 695 530 Balance 284 404 -279 Weight 140.387 kg Intake & Output: Intake & Output 01/10/20 01/11/20 01/11/20 21:59 05:59 13:59 Intake Total 1324 1099 251 Output Total 1040 695 530 Balance 284 404 -279 Weight 140.387 kg Intake: IV 1155 818 100 Sodium Chloride 0.9% 1,000 ml @ 933 50 mls/hr IV .Q20H BO Rx#: [id number] Sodium Chloride 0.9% 250 ml @ 250 20 mls/hr IV .[id number] BO Rx#: [id number] Versed 50 mg In Sodium Chloride 129 68 100 0.9% 90 ml @ 0.02 MG/KG/HR 5. 715 mls/hr IV Q24H BO Rx#: [id number] Vancomycin 2,000 mg In Sodium 500 Chloride 0.9% 500 ml @ 250 mls/ hr IV Q12H BO Rx#:[id number] fentaNYL 2,500 MCG In Sodium 93 Chloride 0.9% 200 ml @ 25 MCG/ HR 2.5 mls/hr IV Q24H BO Rx#: [id number] Tube Feeding 49 161 76 GI Tube Flush 120 120 75 Output: Gastric Drainage 10 Right Nare NG/OG 10 Drainage 30 0 Right Knee 30 0 Drainage 60 Right Knee 60 Urine Catheter Amount 943 452 530 Other: Urine Appearance Clear Clear Clear Uretheral (Harmon) Clear Urine Color Dark Yellow Dark Yellow Bright Yellow Uretheral (Harmon) Dark Yellow Urine Odor Normal Strong Normal Sedated on mechanical ventilation Harmon draining clear urine No telemetry events OBJ DATA Labs CBC & Chem 7: 01/11/20 05:00 01/11/20 05:00 Labs: Abnormal Lab Results 01/11/20 01/11/20 01/10/20 05:00 05:00 09:22 WBC 12.3 H RBC 3.38 L Hgb 10.1 L Hct 31.5 L RDW 14.6 H Gran % Lymph % (Auto) Kemper % (Auto) Gran # Lymph # (Auto) Kemper # (Auto) Seg Neutrophils % 79 H Lymphocytes % 6 L Myelocytes % 3 H Nucleated RBCs 1 H ESR PT INR D-Dimer Chloride Anion Gap BUN 25 H 25 H Glucose 113 H 138 H Total Bilirubin Direct Bilirubin 0.5 H GGT 94 H 108 H Alkaline Phosphatase 137 H 161 H C-Reactive Protein NT-Pro-B Natriuret Pep Total Protein 5.8 L Albumin 2.2 L 2.4 L Albumin/Globulin Ratio 0.6 L 0.7 L Urine Protein Urine Occult Blood Urine Urobilinogen Urine Bacteria 01/10/20 01/10/20 01/09/20 05:15 05:15 10:29 WBC 13.1 H RBC 3.61 L Hgb 10.9 L Hct 32.8 L RDW Gran % 86.2 H Lymph % (Auto) 4.3 L Kemper % (Auto) Gran # 11.30 H Lymph # (Auto) 0.57 L Kemper # (Auto) 1.18 H Seg Neutrophils % Lymphocytes % Myelocytes % Nucleated RBCs ESR 106 H PT INR D-Dimer Chloride Anion Gap BUN Glucose Total Bilirubin Direct Bilirubin GGT Alkaline Phosphatase C-Reactive Protein 38.5 H NT-Pro-B Natriuret Pep Total Protein Albumin Albumin/Globulin Ratio Urine Protein 30 A Urine Occult Blood 0.03 A Urine Urobilinogen 4.0 A Urine Bacteria Few A 01/09/20 01/09/20 01/09/20 09:34 09:34 09:34 WBC RBC Hgb Hct RDW Gran % Lymph % (Auto) Kemper % (Auto) Gran # Lymph # (Auto) Kemper # (Auto) Seg Neutrophils % Lymphocytes % Myelocytes % Nucleated RBCs ESR PT 16.4 H INR 1.3 H D-Dimer 3.81 H Chloride 94 L Anion Gap 17.0 H BUN 35 H Glucose Total Bilirubin 1.6 H Direct Bilirubin GGT Alkaline Phosphatase 221 H C-Reactive Protein NT-Pro-B Natriuret Pep 1312.0 H Total Protein Albumin Albumin/Globulin Ratio 0.9 L Urine Protein Urine Occult Blood Urine Urobilinogen Urine Bacteria 01/09/20 09:34 WBC 14.1 H RBC 3.96 L Hgb 12.2 L Hct 35.8 L RDW Gran % 82.5 H Lymph % (Auto) 3.1 L Kemper % (Auto) 14.0 H Gran # 11.63 H Lymph # (Auto) 0.44 L Kemper # (Auto) 1.98 H Seg Neutrophils % Lymphocytes % Myelocytes % Nucleated RBCs ESR PT INR D-Dimer Chloride Anion Gap BUN Glucose Total Bilirubin Direct Bilirubin GGT Alkaline Phosphatase C-Reactive Protein NT-Pro-B Natriuret Pep Total Protein Albumin Albumin/Globulin Ratio Urine Protein Urine Occult Blood Urine Urobilinogen Urine Bacteria Meds: Medications Hydrocodone Bitart/Acetaminophen ([place] 10/325mg) 0 tab PO Q4HP PRN; Protocol PRN Reason: Per Pain Protocol Aspirin (Aspirin) 81 mg PO BID [facility] Last Admin: 01/11/20 08:41 Dose: 81 mg Documented by: Bisacodyl (Dulcolax) 10 mg AL Q2-3DAYS PRN PRN Reason: Constipation Cefepime HCl (Maxipime) 2 gm IV Q8H [facility]; Protocol Last Admin: 01/11/20 05:26 Dose: 2 gm Documented by: Chlorhexidine Gluconate (Peridex) 15 ml SWABMOUTH BID [facility] Last Admin: 01/11/20 08:46 Dose: 15 ml Documented by: Dextrose (Dextrose 50%) 0 ml IV UD PRN PRN Reason: Hypoglycemia Diagnostic Test (Pha) (Accu-Chek) 1 each FS ACHS [facility] Last Admin: 01/11/20 07:23 Dose: 1 each Documented by: Docusate Sodium (Colace) 100 mg PO BID [facility] Last Admin: 01/11/20 08:43 Dose: 100 mg Documented by: Famotidine (Pepcid) 20 mg IV Q12 [facility] Last Admin: 01/11/20 08:41 Dose: 20 mg Documented by: Furosemide (Lasix) 20 mg IV BIDD [facility] Stop: 01/12/20 08:00 Glucose (Insta-Glucose) 15 gm PO PRN PRN PRN Reason: Hypoglycemia Heparin Sodium (Porcine) (Heparin) 5,000 unit SQ Q12 [facility] Last Admin: 01/11/20 08:41 Dose: 5,000 unit Documented by: Hydrochlorothiazide (Oretic) 12.5 mg PO DAILY [facility] Last Admin: 01/11/20 08:41 Dose: 12.5 mg Documented by: Hydromorphone HCl (Dilaudid) 0 mg IV Q2HP PRN; Protocol PRN Reason: Per Pain Protocol Fentanyl 2,500 mcg/ Sodium (Chloride) 250 mls @ 2.5 mls/hr IV Q24H [facility]; Pr otocol Last Titration: 01/10/20 21:35 Dose: 150 mcg/hr, 15 mls/hr Documented by: Sodium Chloride (Sodium Chloride 0.9%) 1,000 mls @ 50 mls/hr IV .Q20H [facility] Last Admin: 01/10/20 15:01 Dose: 50 mls/hr Documented by: Sodium Chloride (Sodium Chloride 0.9%) 250 mls @ 20 mls/hr IV .[id number] [facility] Last Admin: 01/11/20 04:00 Dose: 20 mls/hr Documented by: Propofol 1,000 mg/ Premix 100 mls @ 4.212 mls/hr IV .[id number] [facility]; Protocol Magnesium Sulfate (Magnesium Sulfate) 2 gm in 50 mls @ 50 mls/hr IV UD PRN PRN Reason: Mag < or = 1.7 Insulin Human Lispro (Humalog) 0 unit SQ ACHS [facility]; Protocol Last Admin: 01/11/20 07:23 Dose: Not Given Documented by: Losartan Potassium (Cozaar) 100 mg PO DAILY [facility] Last Admin: 01/11/20 08:43 Dose: Not Given Documented by: Magnesium Hydroxide (Milk Of Magnesia) 30 ml PO BIDP PRN PRN Reason: Constipation Omeprazole (Prilosec) 40 mg PO ACB [facility] Last Admin: 01/11/20 07:32 Dose: 40 mg Documented by: Ondansetron HCl (Zofran) 4 mg IV Q4HP PRN; Protocol PRN Reason: Nausea And Vomiting Fluvoxamine 100 Mg (Tab) 1 dose PO DAILY [facility] Last Admin: 01/11/20 08:46 Dose: Not Given Documented by: Polyethylene Glycol (Miralax) 17 gm PO DAILYP PRN PRN Reason: Constipation Potassium Chloride (Potassium Chloride) 20 meq PO BIDCC PRN PRN Reason: K <3.6 Potassium Chloride (Potassium Chloride) 40 meq PT ONCE ONE Stop: 01/11/20 09:59 Propranolol HCl (Inderal La) 120 mg PO [facility] Last Admin: 01/10/20 20:52 Dose: Not Given Documented by: Senna (Senokot) 2 tab PO [facility] Last Admin: 01/10/20 20:51 Dose: 2 tab Documented by: Sodium Biphosphate/Sodium Phosphate (Fleets Adult) 1 dose AL Q3-4DAYS PRN PRN Reason: Constipation Sodium Chloride (Saline Flush) 10 ml IV Q8 [facility] Last Admin: 01/11/20 07:45 Dose: 10 ml Documented by: Sodium Chloride (Saline Flush) 10 ml IV Q12 [facility] Last Admin: 01/11/20 08:49 Dose: 10 ml Documented by: Sodium Chloride (Saline Flush) 10 ml IV UD PRN PRN Reason: To keep ports patent Throat Lozenges (Cepacol) 1 lozenge PO PRN PRN PRN Reason: Sore Throat A/P Narrative A/P Narrative: * Gram-positive bacteremia-ID consulted. Antibiotic coverage. Surveillance cultures pending. Echo results awaited. Plan to DC central line today * Acute hypoxic respiratory failure-secondary to bilateral lower lobe pneumonia. Continue antibiotic coverage. COVID-19 pending. On mechanical ventilation * Severe Sepsis with endorgan dysfunction/AMS-on antibiotics, map at goal. * Staph aureus septic arthritis. Status post operative intervention by orthopedics. Managed per orthopedics * Mechanical ventilation per protocol. Continue sedation on fentanyl/propofol, DC with Aslan. Plateau pressure 25. Serial ABGs and chest imaging. * Low potassium/magnesium on replacement * Enteral nutrition per NG * History of hypertension continue holding antihypertensives * GERD on PPI * History of alcoholism-monitor for withdrawals * Full code * Prophylaxis will be initiated on heparin Plan * Serial ABG/chest imaging * Switch to propofol * Potassium replacement * Oral medications * CPT/aggressive suctioning * Continue diuresis Critical care time spent in excess of 35 minutes on mechanical ventilation management Time Spent With Patient Time: Total time spent is greater than 50% in coordination of care (as documented) at patient's floor/unit and/or counseling patient: QUALITY Stroke Symptom Onset Unknown: No VTE Deep Vein Thrombosis/Pulmonary Embolism Present on Admission: No
[2020-01-11] MEDS: fentaNYL 2,500 MCG in 0.9 % SODIUM CHLORIDE 200 ML IV SCH (10:35)
[2020-01-11] MEDS: PROPOFOL 1,000 MG in PREMIX 1 BAG IV SCH ×3 (11:18→21:46)
--- NOTE | 2020-01-11 12:27 | XRay Report ---
CLINICAL INFORMATION: Mechanically Ventilated COMPARISON: 01/10/2020 FINDINGS: Lines and tubes remain in stable satisfactory position. Mild cardiomegaly is unchanged. Mediastinum is normal for technique. Pulmonary vessels are normal for technique. Moderate patchy infiltrates in the perihilar regions are unchanged. Atelectasis left lower lobe has resolved. IMPRESSION: Moderate patchy infiltrates unchanged. Suspect aspiration Interpreted and Authenticated by: Mejia Lambert 01/11/20
[2020-01-11] MEDS: FUROSEMIDE 20 MG/2 ML VIAL IV SCH (16:24)
[2020-01-11] MEDS: 0.9 % SODIUM CHLORIDE 1,000 ML IV SCH (16:27)
[2020-01-11] MEDS: SENNOSIDES 1 TABLET PO SCH (21:03)
[2020-01-11] MEDS: PROPRANOLOL 60 MG CAP.XL.24H PO SCH (21:04)
[2020-01-12] MEDS: INSULIN LISPRO 1 UNIT/0.01 ML UNIT SQ SCH ×3 (00:33→11:30)
[2020-01-12] MEDS: PROPOFOL 1,000 MG in PREMIX 1 BAG IV SCH ×2 (02:43→11:04)
[2020-01-12] MEDS: CEFEPIME 2 GM VIAL IV SCH (06:02)
[2020-01-12] MEDS: 0.9 % SODIUM CHLORIDE 10 ML SYRINGE IV SCH ×3 (06:02→08:03)
[2020-01-12 06:49] LABS: Hematocrit 31.9 % (40.1-51.0); Hemoglobin 10.3 g/dL (13.7-17.5); Mean Cell Volume 92.2 fL (80.0-100.0); Mean Corpuscular HGB Conc 32.3 g/dL (31.0-36.0); Mean Platelet Volume 10.1 fL (7.4-10.4); Platelet Count 260 K/mcL (140-440); RBC 3.46 M/mcL (4.63-6.08); Red Cell Distribution Width 14.7 % (11.5-14.5); WBC 14.6 K/mcL (4.50-11.00)
[2020-01-12 07:36] LABS: ALT/SGPT 23 U/l (0-40); AST/SGOT 29 U/l (0-37); Albumin 2.2 gm/dL (3.2-5.2); Albumin/Globulin Ratio 0.6 (1.0-2.3); Alkaline Phosphatase 160 U/L (39-117); Bilirubin,Direct 0.3 mg/dL (0.0-0.3); Bilirubin,Total 0.7 mg/dL (0.0-1.0); Blood Urea Nitrogen 25 mg/dl (6-20); Calcium 9.2 mg/dl (8.6-10.4); Carbon Dioxide 29 mmol/L (22-30); Chloride 97 mmol/L (96-108); Globulin 3.9 gm/dL (2.2-3.7); Glomerular Filtration Rate 96; Glucose 115 mg/dL (70-105); Lactate Dehydrogenase 179 U/L (94-250); Triglycerides 125 mg/dl (<150); Uric Acid 6.3 mg/dL (2.5-8.0)
[2020-01-12] MEDS: ASPIRIN 81 MG TAB.CHEW PO SCH (08:02)
[2020-01-12] MEDS: HYDROCHLOROTHIAZIDE 12.5 MG CAPSULE PO SCH (08:02)
[2020-01-12] MEDS: FAMOTIDINE/PF 20 MG/2 ML VIAL IV SCH (08:02)
[2020-01-12] MEDS: CHLORHEXIDINE GLUCONATE 1 ML ORAL.SOL SWABMOUTH SCH (08:02)
[2020-01-12] MEDS: LOSARTAN 50 MG TABLET PO SCH (08:02)
[2020-01-12] MEDS: HEPARIN 5,000 UNIT/ML VIAL SQ SCH (08:02)
[2020-01-12] MEDS: DOCUSATE SODIUM 50 MG/5 ML ORAL.SOL PO SCH (08:05)
[2020-01-12] MEDS: FUROSEMIDE 20 MG/2 ML VIAL IV SCH (09:10)
--- NOTE | 2020-01-12 09:30 | XRay Report ---
HISTORY: Intubated, short of breath FINDINGS: Endotracheal tube is positioned with the tip 4 cm above the mariusz. There is a nasogastric tube passing through the esophagus into the antrum of the stomach. Lung volumes are small. There are patchy alveolar infiltrates in both lungs, left worse than right. Some of this is crowding of normal pulmonary vascular markings due to the poor inspiration. However, superimposed pneumonia or atelectasis should be considered. Congestive heart failure cannot be excluded. The heart appears enlarged but is magnified by portable technique and poor inspiration. Comparison with the prior exam from 6:32 AM on the same date shows worsening aeration in both lungs. IMPRESSION: Worsening aeration in both lungs which may be a combination of pneumonia, atelectasis, pulmonary vascular congestion and poor inspiration Interpreted and Authenticated by: Liang Mcdaniel 01/12/20
--- NOTE | 2020-01-12 09:38 | Internal Med Progress Note ---
SUBJECTIVE Subjective Patient information: Note initiated : 01/12/20 at 9:31 am Service Date, if different from initiated Date: [] Patient: Hola Cleary 54 y/o M admitted on 01/09/20 for Sob, bilateral swelling in legs. Chief Complaint: Mr. Fowler is a 54-year-old with history of hypertension/DJD who presented to the ER this morning with shortness of breath along with bilateral lower extrem ity swelling over the last 3 days. Patient work-up was suggestive of possible CHF/sepsis or PE as per Dr. Murray ER physician's initial evaluation. He was diagnosed with right prosthetic knee hardware infection following positive synovial fluid aspirate performed at Dr. No's clinic. He was taken to the OR directly from ER by orthopedics for surgical intervention/joint washout. Intraoperatively patient became hypoxic requiring 100% oxygen on mechanical ventilation. Hospital service was consulted by anesthesia Dr. Medina regarding patient deteriorating status/hypoxia and need for further evaluation. Patient's dramatic worsening respiratory status points to a couple of likely possibilities including an acute PE/CHF-flash pulmonary edema or a manifestation of severe sepsis. Patient is currently undergoing surgery and following discussion with anesthesia it was determined that the patient would require transfer to the ICU on mechanical ventilation and will receive an emergent CT angiogram chest to evaluate for PE and the need for anticoagulation/TPA if hemodynamically unstable . Also patient will be initiated on broad antibiotic coverage while blood cultures/ABG/lactic acid will be obtained. Patient be started on ICU sedation on midazolam/fentanyl. No family members available for further history Most of the history was obtained from review of medical records, ER physician Dr. Hong Murray and from anesthesia Dr. Medina. Patient was received in ICU on mechanical ventilation. chest imaging/CT/labs including lactic acid/ABG in ICU sedation was performed. Harmon's catheter draining clear urine. 01/09-patient on mechanical ventilation. On midazolam/ fentanyl for sedation. Tidal volume 510/PEEP 8 FiO2 60%. Blood gas 7.43/44/95. Plateau pressure 25. ID consulted. Continuing cefepime/vancomycin. Initiate low-dose diuretics. Chest imaging shows left lower lobe whiteout with possible mucous plug. Continue CPT. 01/10-on mechanical ventilation. FiO2 45% PEEP 8. Persistent bilateral infiltrates. White count gradually downtrending now at 12 K. Plateau pressure 15, renal function stable, potassium 3.4 on replacement, COVID pending. No overnight fever chills. Broad antibiotic coverage on cefepime/vancomycin. Cultures gram-positive cocci. Echo results pending. Wean sedation for possible extubation. 01/11-patient continues on mechanical ventilation. On enteral tube feeds. No overnight events. Diuresing well. On 45% FiO2. On spontaneous breathing trials. Net -7000 cc. Systolics at goal. White count increased to 14.6 creatinine 0.9. On antibiotic coverage per ID recommendations. Surveillance cultures positive for bacteremia. DC central line today. COVID-19 testing pending. On propofol/for ICU sedation. Harmon is draining clear urine. Constitutional Vitals: Vital Signs Temp Pulse Resp BP Pulse Ox 98.1 F 135 H 32 H 100/59 95 01/12/20 08:01 01/12/20 09:01 01/12/20 09:16 01/12/20 09:01 01/12/20 09:16 Period Temp Pulse Resp BP Sys/Ralph Pulse Ox Last 24 Hr 98.1 F-100.1 F 90-138 16-32 100-153/59-101 92-98 Intake and Output 01/11/20 01/12/20 01/12/20 21:59 05:59 13:59 Intake Total 698 489 230 Output Total 2415 645 320 Balance -1717 -156 -90 Weight 138.89 kg On mechanical ventilation Harmon is draining clear urine Morbidly obese Intake & Output: Intake & Output 01/11/20 01/12/20 01/12/20 21:59 05:59 13:59 Intake Total 698 489 230 Output Total 2415 645 320 Balance -1717 -156 -90 Weight 138.89 kg Intake: IV 461 209 135 Sodium Chloride 0.9% 250 ml @ 266 20 mls/hr IV .[id number] BO Rx#: [id number] Diprivan 1,000 mg In Premix 1 195 110 56 Bag @ 5 MCG/KG/MIN 4.212 mls/hr IV .[id number] BO Rx#:[id number] fentaNYL 2,500 MCG In Sodium 99 79 Chloride 0.9% 200 ml @ 25 MCG/ HR 2.5 mls/hr IV Q24H BO Rx#: [id number] Tube Feeding 117 160 95 GI Tube Flush 120 120 Output: Urine Catheter Amount 2410 033 320 Other: Urine Appearance Clear Clear Clear Uretheral (Harmon) Clear Clear Clear Urine Color Bright Yellow Dark Yellow Dark Yellow Uretheral (Harmon) Bright Yellow Dark Yellow Dark Yellow Urine Odor Normal Strong Normal OBJ DATA Labs CBC & Chem 7: 01/12/20 05:30 01/12/20 05:30 Labs: Abnormal Lab Results 01/12/20 01/12/20 01/11/20 05:30 05:30 05:00 WBC 14.6 H RBC 3.46 L Hgb 10.3 L Hct 31.9 L RDW 14.7 H Gran % Lymph % (Auto) [place] % (Auto) Gran # Lymph # (Auto) [place] # (Auto) Seg Neutrophils % Lymphocytes % Myelocytes % Nucleated RBCs ESR PT INR D-Dimer Chloride Anion Gap BUN 25 H 25 H Glucose 115 H 113 H Phosphorus 5.0 H Total Bilirubin Direct Bilirubin GGT 123 H 94 H Alkaline Phosphatase 160 H 137 H C-Reactive Protein NT-Pro-B Natriuret Pep Total Protein 5.8 L Albumin 2.2 L 2.2 L Globulin 3.9 H Albumin/Globulin Ratio 0.6 L 0.6 L Urine Protein Urine Occult Blood Urine Urobilinogen Urine Bacteria 01/11/20 01/10/20 01/10/20 05:00 09:22 05:15 WBC 12.3 H RBC 3.38 L Hgb 10.1 L Hct 31.5 L RDW 14.6 H Gran % Lymph % (Auto) [place] % (Auto) Gran # Lymph # (Auto) [place] # (Auto) Seg Neutrophils % 79 H Lymphocytes % 6 L Myelocytes % 3 H Nucleated RBCs 1 H ESR PT INR D-Dimer Chloride Anion Gap BUN 25 H Glucose 138 H Phosphorus Total Bilirubin Direct Bilirubin 0.5 H GGT 108 H Alkaline Phosphatase 161 H C-Reactive Protein 38.5 H NT-Pro-B Natriuret Pep Total Protein Albumin 2.4 L Globulin Albumin/Globulin Ratio 0.7 L Urine Protein Urine Occult Blood Urine Urobilinogen Urine Bacteria 01/10/20 01/09/20 01/09/20 05:15 10:29 09:34 WBC 13.1 H RBC 3.61 L Hgb 10.9 L Hct 32.8 L RDW Gran % 86.2 H Lymph % (Auto) 4.3 L [place] % (Auto) Gran # 11.30 H Lymph # (Auto) 0.57 L [place] # (Auto) 1.18 H Seg Neutrophils % Lymphocytes % Myelocytes % Nucleated RBCs ESR 106 H PT 16.4 H INR 1.3 H D-Dimer Chloride Anion Gap BUN Glucose Phosphorus Total Bilirubin Direct Bilirubin GGT Alkaline Phosphatase C-Reactive Protein NT-Pro-B Natriuret Pep Total Protein Albumin Globulin Albumin/Globulin Ratio Urine Protein 30 A Urine Occult Blood 0.03 A Urine Urobilinogen 4.0 A Urine Bacteria Few A 01/09/20 01/09/20 01/09/20 09:34 09:34 09:34 WBC 14.1 H RBC 3.96 L Hgb 12.2 L Hct 35.8 L RDW Gran % 82.5 H Lymph % (Auto) 3.1 L [place] % (Auto) 14.0 H Gran # 11.63 H Lymph # (Auto) 0.44 L [place] # (Auto) 1.98 H Seg Neutrophils % Lymphocytes % Myelocytes % Nucleated RBCs ESR PT INR D-Dimer 3.81 H Chloride 94 L Anion Gap 17.0 H BUN 35 H Glucose Phosphorus Total Bilirubin 1.6 H Direct Bilirubin GGT Alkaline Phosphatase 221 H C-Reactive Protein NT-Pro-B Natriuret Pep 1312.0 H Total Protein Albumin Globulin Albumin/Globulin Ratio 0.9 L Urine Protein Urine Occult Blood Urine Urobilinogen Urine Bacteria Meds: Medications Hydrocodone Bitart/Acetaminophen ([place] 10/325mg) 0 tab PO Q4HP PRN; Protocol PRN Reason: Per Pain Protocol Aspirin (Aspirin) 81 mg PO BID REPLACED BY [facility] Last Admin: 01/12/20 08:02 Dose: 81 mg Documented by: Bisacodyl (Dulcolax) 10 mg OR Q2-3DAYS PRN PRN Reason: Constipation Cefepime HCl (Maxipime) 2 gm IV Q8H REPLACED BY [facility]; Protocol Last Admin: 01/12/20 06:02 Dose: 2 gm Documented by: Chlorhexidine Gluconate (Peridex) 15 ml SWABMOUTH BID REPLACED BY [facility] Last Admin: 01/12/20 08:02 Dose: Not Given Documented by: Dextrose (Dextrose 50%) 0 ml IV UD PRN PRN Reason: Hypoglycemia Diagnostic Test (Pha) (Accu-Chek) 1 each FS Q6 REPLACED BY [facility]; Protocol Last Admin: 01/12/20 05:42 Dose: 1 each Documented by: Docusate Sodium (Colace) 100 mg PO BID REPLACED BY [facility] Last Admin: 01/12/20 08:05 Dose: 100 mg Documented by: Famotidine (Pepcid) 20 mg IV Q12 REPLACED BY [facility] Last Admin: 01/12/20 08:02 Dose: 20 mg Documented by: Glucose (Insta-Glucose) 15 gm PO PRN PRN PRN Reason: Hypoglycemia Hydrochlorothiazide (Oretic) 12.5 mg PO DAILY REPLACED BY [facility] Last Admin: 01/12/20 08:02 Dose: 12.5 mg Documented by: Hydromorphone HCl (Dilaudid) 0 mg IV Q2HP PRN; Protocol PRN Reason: Per Pain Protocol Fentanyl 2,500 mcg/ Sodium (Chloride) 250 mls @ 2.5 mls/hr IV Q24H REPLACED BY [facility]; Protoc ol Last Titration: 01/12/20 09:15 Dose: 10 mcg/hr, 1 mls/hr Documented by: Sodium Chloride (Sodium Chloride 0.9%) 250 mls @ 20 mls/hr IV .[id number] REPLACED BY [facility] Last Admin: 01/11/20 21:51 Dose: 20 mls/hr Documented by: Propofol 1,000 mg/ Premix 100 mls @ 4.212 mls/hr IV .[id number] REPLACED BY [facility]; Protocol Last Titration: 01/12/20 09:15 Dose: 25 mcg/kg/min, 21.058 mls/hr Documented by: Magnesium Sulfate (Magnesium Sulfate) 2 gm in 50 mls @ 50 mls/hr IV UD PRN PRN Reason: Mag < or = 1.7 Last Infusion: 01/11/20 12:00 Dose: Infused Documented by: Insulin Human Lispro (Humalog) 0 unit SQ Q6 REPLACED BY [facility]; Protocol Last Admin: 01/12/20 06:02 Dose: Not Given Documented by: Losartan Potassium (Cozaar) 100 mg PO DAILY REPLACED BY [facility] Last Admin: 01/12/20 08:02 Dose: Not Given Documented by: Magnesium Hydroxide (Milk Of Magnesia) 30 ml PO BIDP PRN PRN Reason: Constipation Ondansetron HCl (Zofran) 4 mg IV Q4HP PRN; Protocol PRN Reason: Nausea And Vomiting Fluvoxamine 100 Mg (Tab) 1 dose PO DAILY REPLACED BY [facility] Last Admin: 01/12/20 09:10 Dose: Not Given Documented by: Polyethylene Glycol (Miralax) 17 gm PO DAILYP PRN PRN Reason: Constipation Potassium Chloride (Potassium Chloride) 20 meq PO BIDCC PRN PRN Reason: K <3.6 Propranolol HCl (Inderal La) 120 mg PO HS REPLACED BY [facility] Last Admin: 01/11/20 21:04 Dose: Not Given Documented by: Senna (Senokot) 2 tab PO HS REPLACED BY [facility] Last Admin: 01/11/20 21:03 Dose: 2 tab Documented by: Sodium Biphosphate/Sodium Phosphate (Fleets Adult) 1 dose OR Q3-4DAYS PRN PRN Reason: Constipation Sodium Chloride (Saline Flush) 10 ml IV Q8 REPLACED BY [facility] Last Admin: 01/12/20 06:51 Dose: 10 ml Documented by: Sodium Chloride (Saline Flush) 10 ml IV Q12 REPLACED BY [facility] Last Admin: 01/12/20 08:03 Dose: 10 ml Documented by: Sodium Chloride (Saline Flush) 10 ml IV UD PRN PRN Reason: To keep ports patent Last Admin: 01/11/20 13:59 Dose: 10 ml Documented by: Throat Lozenges (Cepacol) 1 lozenge PO PRN PRN PRN Reason: Sore Throat A/P Assessment and plan (1) Infected prosthetic knee joint: Status: Acute Narrative A/P Narrative: * Staph aureus bacteremia-ID on board. Antibiotic coverage. Surveillance cultures pending. Echo results awaited. Plan to DC central line today * Mechanical ventilation for acute hypoxic respiratory failure- COVID-19 pending. Management per protocol * Severe Sepsis with endorgan dysfunction-on antibiotics, map at goal. White count 14.6 * Bilateral lower lobe pneumonia worsening on interval imaging. * Staph aureus septic arthritis. Status post operative intervention by orthopedics. Managed per orthopedics. * Low potassium/magnesium on replacement * Enteral nutrition per NG * History of hypertension continue holding antihypertensives * GERD on PPI * History of alcoholism-monitor for withdrawals * Full code * Prophylaxis will be initiated on heparin Plan * Serial ABG/chest imaging * Propofol/fentanyl for ICU sedation * CPT/aggressive suctioning * Broad antibiotic coverage * Await COVID-19 testing Critical care time spent in excess of 35 minutes on management of hypoxic story failure/mechanical ventilation Time Spent With Patient Time: Total time spent is greater than 50% in coordination of care (as documented) at patient's floor/unit and/or counseling patient: QUALITY Stroke Symptom Onset Unknown: No VTE Deep Vein Thrombosis/Pulmonary Embolism Present on Admission: No
[2020-01-12] MEDS: 0.9 % SODIUM CHLORIDE 250 ML IV SCH ×2 (10:45→12:16)
[2020-01-12] MEDS: fentaNYL 2,500 MCG in 0.9 % SODIUM CHLORIDE 200 ML IV SCH ×2 (10:48→12:11)
--- NOTE | 2020-01-12 11:19 | Internal Med Progress Note ---
SUBJECTIVE Subjective Patient information: Note initiated : 01/12/20 at 11:18 am Service Date, if different from initiated Date: [] Patient: Hola Cleary 54 y/o M admitted on 01/09/20 for Sob, bilateral swelling in legs. Chief Complaint: Pt continues to be intubated and sedated. he failed his weaning trial this am. No fever overnight. Still has lots of resp secretions, yellow colored. Has the right IJ central line. No diarrhea reported. Constitutional Vitals: Vital Signs Temp Pulse Resp BP Pulse Ox 37.1 C 101 H 16 112/74 97 01/12/20 10:01 01/12/20 11:01 01/12/20 11:01 01/12/20 11:01 01/12/20 11:01 Period Temp Pulse Resp BP Sys/Ralph Pulse Ox Last 24 Hr 36.7 C-37.8 C 90-138 16-32 100-153/58-101 92-98 Intake and Output 01/11/20 01/12/20 01/12/20 21:59 05:59 13:59 Intake Total 698 489 403 Output Total 2415 645 530 Balance -1717 -156 -127 Weight 138.89 kg Intake & Output: Intake & Output 01/11/20 01/12/20 01/12/20 21:59 05:59 13:59 Intake Total 698 489 403 Output Total 2415 645 530 Balance -1717 -156 -127 Weight 138.89 kg Intake: IV 461 209 153 Sodium Chloride 0.9% 250 ml @ 266 20 mls/hr IV .[id number] BO Rx#: [id number] Diprivan 1,000 mg In Premix 1 195 110 73 Bag @ 5 MCG/KG/MIN 4.212 mls/hr IV .[id number] BO Rx#:[id number] fentaNYL 2,500 MCG In Sodium 99 80 Chloride 0.9% 200 ml @ 25 MCG/ HR 2.5 mls/hr IV Q24H BO Rx#: [id number] Tube Feeding 117 160 130 GI Tube Flush 120 120 120 Output: Urine Catheter Amount 241 64 530 Other: Urine Appearance Clear Clear Clear Uretheral (Harmon) Clear Clear Clear Urine Color Bright Yellow Dark Yellow Dark Yellow Uretheral (Harmon) Bright Yellow Dark Yellow Dark Yellow Urine Odor Normal Strong Normal Additional findings Additional findings: intubated and sedated pupils are reactive to light equally chest has decreased BS (auscultation limited by thick walled chest) s1 soft, s2 normal, no murmurs heard abd distended, BS ++, rt kne: less swollen, covered in surgical dressing, no drains Rt IJ looks fine without any redness around it. OBJ DATA Labs CBC & Chem 7: 01/12/20 05:30 01/12/20 05:30 Labs: Abnormal Lab Results 01/12/20 01/12/20 01/11/20 05:30 05:30 05:00 WBC 14.6 H RBC 3.46 L Hgb 10.3 L Hct 31.9 L RDW 14.7 H Gran % Lymph % (Auto) Gran # Lymph # (Auto) [place] # (Auto) Seg Neutrophils % Lymphocytes % Myelocytes % Nucleated RBCs ESR BUN 25 H 25 H Glucose 115 H 113 H Phosphorus 5.0 H Direct Bilirubin GGT 123 H 94 H Alkaline Phosphatase 160 H 137 H C-Reactive Protein Total Protein 5.8 L Albumin 2.2 L 2.2 L Globulin 3.9 H Albumin/Globulin Ratio 0.6 L 0.6 L 01/11/20 01/10/20 01/10/20 05:00 09:22 05:15 WBC 12.3 H RBC 3.38 L Hgb 10.1 L Hct 31.5 L RDW 14.6 H Gran % Lymph % (Auto) Gran # Lymph # (Auto) [place] # (Auto) Seg Neutrophils % 79 H Lymphocytes % 6 L Myelocytes % 3 H Nucleated RBCs 1 H ESR BUN 25 H Glucose 138 H Phosphorus Direct Bilirubin 0.5 H GGT 108 H Alkaline Phosphatase 161 H C-Reactive Protein 38.5 H Total Protein Albumin 2.4 L Globulin Albumin/Globulin Ratio 0.7 L 01/10/20 05:15 WBC 13.1 H RBC 3.61 L Hgb 10.9 L Hct 32.8 L RDW Gran % 86.2 H Lymph % (Auto) 4.3 L Gran # 11.30 H Lymph # (Auto) 0.57 L [place] # (Auto) 1.18 H Seg Neutrophils % Lymphocytes % Myelocytes % Nucleated RBCs ESR 106 H BUN Glucose Phosphorus Direct Bilirubin GGT Alkaline Phosphatase C-Reactive Protein Total Protein Albumin Globulin Albumin/Globulin Ratio Meds: Medications Hydrocodone Bitart/Acetaminophen ([place] 10/325mg) 0 tab PO Q4HP PRN; Protocol PRN Reason: Per Pain Protocol Aspirin (Aspirin) 81 mg PO BID [facility] Last Admin: 01/12/20 08:02 Dose: 81 mg Documented by: Bisacodyl (Dulcolax) 10 mg HI Q2-3DAYS PRN PRN Reason: Constipation Cefepime HCl (Maxipime) 2 gm IV Q8H [facility]; Protocol Last Admin: 01/12/20 06:02 Dose: 2 gm Documented by: Chlorhexidine Gluconate (Peridex) 15 ml SWABMOUTH BID [facility] Last Admin: 01/12/20 08:02 Dose: Not Given Documented by: Dextrose (Dextrose 50%) 0 ml IV UD PRN PRN Reason: Hypoglycemia Diagnostic Test (Pha) (Accu-Chek) 1 each FS Q6 [facility]; Protocol Last Admin: 01/12/20 05:42 Dose: 1 each Documented by: Docusate Sodium (Colace) 100 mg PO BID [facility] Last Admin: 01/12/20 08:05 Dose: 100 mg Documented by: Famotidine (Pepcid) 20 mg IV Q12 [facility] Last Admin: 01/12/20 08:02 Dose: 20 mg Documented by: Glucose (Insta-Glucose) 15 gm PO PRN PRN PRN Reason: Hypoglycemia Hydrochlorothiazide (Oretic) 12.5 mg PO DAILY [facility] Last Admin: 01/12/20 08:02 Dose: 12.5 mg Documented by: Hydromorphone HCl (Dilaudid) 0 mg IV Q2HP PRN; Protocol PRN Reason: Per Pain Protocol Fentanyl 2,500 mcg/ Sodium (Chloride) 250 mls @ 2.5 mls/hr IV Q24H [facility]; Protocol Last Admin: 01/12/20 10:48 Dose: Not Given Documented by: Sodium Chloride (Sodium Chloride 0.9%) 250 mls @ 20 mls/hr IV .[id number] [facility] Last Admin: 01/12/20 10:45 Dose: Not Given Documented by: Propofol 1,000 mg/ Premix 100 mls @ 4.212 mls/hr IV .[id number] [facility]; Protocol Last Admin: 01/12/20 11:04 Dose: 25 mcg/kg/min, 21.058 mls/hr Documented by: Magnesium Sulfate (Magnesium Sulfate) 2 gm in 50 mls @ 50 mls/hr IV UD PRN PRN Reason: Mag < or = 1.7 Last Infusion: 01/11/20 12:00 Dose: Infused Documented by: Insulin Human Lispro (Humalog) 0 unit SQ Q6 [facility]; Protocol Last Admin: 01/12/20 06:02 Dose: Not Given Documented by: Losartan Potassium (Cozaar) 100 mg PO DAILY [facility] Last Admin: 01/12/20 08:02 Dose: Not Given Documented by: Magnesium Hydroxide (Milk Of Magnesia) 30 ml PO BIDP PRN PRN Reason: Constipation Ondansetron HCl (Zofran) 4 mg IV Q4HP PRN; Protocol PRN Reason: Nausea And Vomiting Fluvoxamine 100 Mg (Tab) 1 dose PO DAILY [facility] Last Admin: 01/12/20 09:10 Dose: Not Given Documented by: Polyethylene Glycol (Miralax) 17 gm PO DAILYP PRN PRN Reason: Constipation Potassium Chloride (Potassium Chloride) 20 meq PO BIDCC PRN PRN Reason: K <3.6 Last Admin: 01/12/20 10:15 Dose: 20 meq Documented by: Propranolol HCl (Inderal La) 120 mg PO [facility] Last Admin: 01/11/20 21:04 Dose: Not Given Documented by: Senna (Senokot) 2 tab PO [facility] Last Admin: 01/11/20 21:03 Dose: 2 tab Documented by: Sodium Biphosphate/Sodium Phosphate (Fleets Adult) 1 dose HI Q3-4DAYS PRN PRN Reason: Constipation Sodium Chloride (Saline Flush) 10 ml IV Q8 [facility] Last Admin: 01/12/20 06:51 Dose: 10 ml Documented by: Sodium Chloride (Saline Flush) 10 ml IV Q12 [facility] Last Admin: 01/12/20 08:03 Dose: 10 ml Documented by: Sodium Chloride (Saline Flush) 10 ml IV UD PRN PRN Reason: To keep ports patent Last Admin: 01/11/20 13:59 Dose: 10 ml Documented by: Throat Lozenges (Cepacol) 1 lozenge PO PRN PRN PRN Reason: Sore Throat A/P Narrative A/P Narrative: A: 1. Right knee prosthetic joint infection: synovial fluid Cx from 01/08/20 growing MSSA - POD 3 after irrigation and debridement, with removal of prosthesis, placement of antibiotic spacer 2. Acute hypoxic respiratory failure: on mechanical ventilation - CT chest, sputum Cx growing Staph aureus support diagnosis of MSSA pneumonia - r/o COVID-19 - Other etiologies such as CHF could be contributing (as NT pro BNP is ~1200, +ve peripheral edema) 3. MSSA bacteremia: blood Cx +ve on 01/08, 01/09 - MRSA nasal swab -ve - likely source (1) , (2) 4. Sepsis: sec to (3) Overall critically ill, needing higher levels of care. Would need DORIS given multiple days of +ve blood Cx, and limitations of TTE with thick walled chest and obesity. Recommendations: - agree with Vanc stopped yesterday. - Continue IV Cefepime 2 gm q8 hrs for now, for broader coverage given worsening CXR, persistent hypoxemia. Could be deescalated to IV Cefazolin 2 gm q8 hrs once extubated. - DORIS - CT chest to r/o any loculated effusions, septic emboli. - awaiting COVID 19 PCR results - repeat blood Cx (2 sets) every other day until neg for 48 hrs - Remove RT IJ central line for quicker resolution of MSSA bacteremia. will follow Walt Marx MD Infectious Diseases Time Spent With Patient Time: Total time spent is greater than 50% in coordination of care (as documented) at patient's floor/unit and/or counseling patient: QUALITY Stroke Symptom Onset Unknown: No VTE Deep Vein Thrombosis/Pulmonary Embolism Present on Admission: No
--- NOTE | 2020-01-12 11:42 | Transfer Summary ---
Discharge Provider Provider Patient information: Note initiated : 01/12/20 at 11:37 am Service Date, if different from initiated Date: [] Patient: Hola Cleary 54 y/o M admitted on 01/09/20 for Sob, bilateral swelling in legs. Transfer diagnosis * Staph aureus bacteremia-ID on board. Cultures positive from 12/09. Echocardiogram from pending. On IV cefepime. Repeat surveillance cultures pending. Echo results awaited. Central line will need to be DC'd due to po ssible secondary seeding * Mechanical ventilation for acute hypoxic respiratory failure- COVID-19 pending. Management per protocol on propofol/fentanyl * Severe Sepsis with endorgan dysfunction-on antibiotics, MAP at goal. White count today 14.6 * Bilateral lower lobe pneumonia worsening on interval imaging. Continue pulmonary toilet/suctioning/diuresis * Staph aureus right knee septic arthritis. Status post operative intervention by orthopedics. Managed per orthopedics. * Low potassium/magnesium on replacement * Enteral nutrition per NG * History of hypertension continue holding antihypertensives * GERD on PPI * History of alcoholism-monitor for withdrawals Brief hospital course Mr. Fowler is a 54-year-old with history of hypertension/DJD who presented to the ER this morning with shortness of breath along with bilateral lower extremity swelling over the last 3 days. Patient work-up was suggestive of possible CHF/sepsis or PE as per Dr. Murray ER physician's initial evaluation. He was diagnosed with right prosthetic knee hardware infection following positive synovial fluid aspirate performed at Dr. No's clinic. He was taken to the OR directly from ER by orthopedics for surgical intervention/joint washout. Intraoperatively patient became hypoxic requiring 100% oxygen on mechanical ventilation. Hospital service was consulted by anesthesia Dr. Medina regarding patient deteriorating status/hypoxia and need for further evaluation. Patient's dramatic worsening respiratory status points to a couple of likely possibilities including an acute PE/CHF-flash pulmonary edema or a manifestation of severe sepsis. Patient is currently undergoing surgery and following discussion with anesthesia it was determined that the patient would require transfer to the ICU on mechanical ventilation and will receive an emergent CT angiogram chest to evaluate for PE and the need for anticoagulation/TPA if hemodynamically unstable. Also patient will be initiated on broad antibiotic coverage while blood cultures/ABG/lactic acid will be obtained. Patient be started on ICU sedation on midazolam/fentanyl. No family members available for further history Most of the history was obtained from review of medical records, ER physician Dr. Hong Murray and from anesthesia Dr. Medina. Patient was received in ICU on mechanical ventilation. chest imaging/CT/labs including lactic acid/ABG in ICU sedation was performed. Harmon's catheter draining clear urine. 01/09-patient on mechanical ventilation. On midazolam/ fentanyl for sedation. Tidal volume 510/PEEP 8 FiO2 60%. Blood gas 7.43/44/95. Plateau pressure 25. ID consulted. Continuing cefepime/vancomycin. Initiate low-dose diuretics. Chest imaging shows left lower lobe whiteout with possible mucous plug. Continue CPT. 01/10-on mechanical ventilation. FiO2 45% PEEP 8. Persistent bilateral infiltrates. White count gradually downtrending now at 12 K. Plateau pressure 15, renal function stable, potassium 3.4 on replacement, COVID pending. No overnight fever chills. Broad antibiotic coverage on cefepime/vancomycin. Cultures gram-positive cocci. Echo results pending. Wean sedation for possible extubation. 01/11-patient continues on mechanical ventilation. On enteral tube feeds. No overnight events. Diuresing well. On 45% FiO2. On spontaneous breathing trials. Net -7000 cc. Systolics at goal. White count increased to 14.6 creatinine 0.9. On antibiotic coverage per ID recommendations. Surveillance cultures positive for bacteremia 8th. DC central line today. COVID-19 PCR testing pending. On propofol/for ICU sedation. Harmon is draining clear urine. Reviewed imaging/surveillance cultures positive for staph aureus bacteremia. Case discussed with ID. Patient will require transfer to tertiary center to rule out staph aureus endocarditis given Staphylococcus bacteremia/pneumonia and septic arthritis and possible cardiac valvular seeding and subsequent need for [facility]/tertiary center care. [facility] [place] but no [facility] beds available at this time. Attempt transfer to [facility]. Case discussed with test specialist Dr. Celio Freedman who graciously accepted this patient for transfer and further management. Patient be transferred via air ambulance. Date of admission: 01/09/20 14:13 Discharge date: 01/12/20 Primary care physician: Scott Ibanez Consults: 01/09/20 13:03 Consult to Physician [CONS] Routine Comment: Consulting Provider: Shayan Wilson Reason For Exam: Physician to Consult 01/10/20 08:00 Consult to Physician [CONS] Routine Comment: Consulting Provider: Walt Marx Reason For Exam: Physician to Consult 01/10/20 09:52 Consult to Physician [CONS] Routine Comment: Consulting Provider: Shayan Wilson Reason For Exam: Physician to Consult Discharge Meds Discharge Medications Home Medications amlodipine 10 mg PO HS 07/09/19 [History Confirmed 01/09/20 Last Taken 07/16/19 20:00] fluvoxamine 100 mg PO DAILY 07/09/19 [History Confirmed 01/09/20 Last Taken 07/17/19 06:00] hydrochlorothiazide 12.5 mg PO DAILY 07/09/19 [History Confirmed 01/09/20 Last Taken 07/17/19 06:00] losartan 100 mg PO DAILY 07/09/19 [History Confirmed 01/09/20 Last Taken 07/17/19 06:00] omeprazole 40 mg PO ACB 07/09/19 [History Confirmed 01/09/20 Last Taken 07/17/19 06:00] propranolol 120 mg PO HS 07/09/19 [History Confirmed 01/09/20 Last Taken 07/16/19 20:00] aspirin 81 mg PO BID #30 tab.chew 07/18/19 [Rx Confirmed 01/09/20 Last Taken Unknown] COURSE Hospital Course Hospital course: . Discharge diagnosis: / Time Spent with Patient Time attestation: Total time spent providing and/or coordinating discharge services: EXAM Constitutional Vitals: Temp Pulse Resp BP Pulse Ox 98.8 F 101 H 16 112/74 97 01/12/20 10:01 01/12/20 11:01 01/12/20 11:01 01/12/20 11:01 01/12/20 11:01 Discharge Data Data Completed and Pending Labs on day of discharge: Labs from last 24 hours 01/12/20 01/12/20 05:30 05:30 WBC 14.6 H RBC 3.46 L Hgb 10.3 L Hct 31.9 L MCV 92.2 MCH 29.8 MCHC 32.3 RDW 14.7 H Plt Count 260 MPV 10.1 Total Counted Pending Band Neutrophils % Not Reportable Platelet Estimate Pending RBC Morphology Pending Sodium 139 Potassium 3.5 Chloride 97 Carbon Dioxide 29 Anion Gap 13.0 BUN 25 H Creatinine 0.9 GFR Calculation 96 Glucose 115 H Uric Acid 6.3 Calcium 9.2 Phosphorus 5.0 H Magnesium 1.8 Total Bilirubin 0.7 Direct Bilirubin 0.3 GGT 123 H AST 29 ALT 23 Alkaline Phosphatase 160 H Lactate Dehydrogenase 179 Total Protein 6.1 Albumin 2.2 L Globulin 3.9 H Albumin/Globulin Ratio 0.6 L Triglycerides 125 Preliminary micro results at discharge 01/10/20 08:18 Sputum Culture - Preliminary Sputum - Induced Staphylococcus aureus 01/09/20 15:23 Blood Culture - Preliminary Blood Staphylococcus aureus 01/10/20 15:45 Blood Culture - Preliminary Blood - Second Gram positive cocci 01/10/20 15:56 Blood Culture - Preliminary Blood - Second Gram positive cocci 01/09/20 18:35 Blood Culture - Preliminary Blood Gram positive cocci Discharge Plan Patient/Caregiver Discharge Instructions Activity Restrictions/Additional Instructions: [facility] accepting physician Dr. Celio Freedman Prescriptions: No Action losartan 50 MG tablet 100 mg PO DAILY RF: 0 omeprazole 40 MG capsule,delayed release(DR/EC) 40 mg PO ACB RF: 0 amlodipine 10 MG tablet 10 mg PO HS RF: 0 hydrochlorothiazide 12.5 MG capsule 12.5 mg PO DAILY RF: 0 fluvoxamine 100 MG tablet 100 mg PO DAILY RF: 0 propranolol 120 MG capsule,extended release 24 hr 120 mg PO HS RF: 0 aspirin 81 MG tablet,chewable 81 mg PO BID Qty: 30 RF: 0 Follow Up Plan Follow up with: Scott Ibanez MD [Primary Care Provider] - Patient Disposition: [facility] Rehab Potential: Serious Overall status at discharge: patient is back to baseline Discharge Orders: Discharge Order (Routine); Ordered 01/12/20 Ordered By: Shayan SANCHEZ VTE Deep Vein Thrombosis/Pulmonary Embolism Present on Admission: No
[2020-01-12 12:21] LABS: Band Neutrophils % 2 % (0-10); Basophils % (Manual) 2 % (0-2); Lymphocytes % 11 % (15-49); Metamyelocytes % 4 % (0-0); Monocytes % (Manual) 8 % (1-12); Myelocytes % 5 % (0-0); Platelet Estimate NORMAL (NORMAL); RBC Morphology NORMAL (NORMAL); Segmented Neutrophils % 68 % (38-78)
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
== END 2020-01-12 12:50 | disposition short-term general hospital (02) | DRG 853 ==
LOC: ED 09:00 → SUR 10:27 → ICU 14:13
PROVIDERS: ADMIT Internal Medicine; ATTEND Orthopaedic Surgery